=== PATIENT | male | born 1955 | race American Indian/Alaskan Native ===

== ENCOUNTER 2020-09-21 13:05 | Inpatient (IN) | payer OTHER ==
[2020-09-21] MEDS ORDERED: cloNIDine 0.1 MG TAB PO ONE (13:39)
--- NOTE | 2020-09-21 13:39 | Event Note ---
ED Screening Note ED Screening Note: Patient is a 65-year-old male presents emergency room complaints of right arm and right leg weakness that began 2 days ago He states that he feels slightly off balance and that his speech feels slightly different he denies any CP, SOB, Abd pain, vision changes, headache PMHx HTN and borderline DM takes lisinopril for BP and took today allergy: chloroquine This initial assessment/diagnostic orders/clinical plan/treatment(s) is/are subject to change based on patients health status, clinical progression and re- assessment by fellow clinical providers in the ED. Further treatment and workup at subsequent clinical providers discretion. Patient/guardian urged not to elope from the ED as their condition may be serious if not clinically assessed and managed. Initial orders include: labs, EKG, CT head, UA
--- NOTE | 2020-09-21 14:34 | Cat Scan Report ---
CT HEAD WITHOUT CONTRAST INDICATION / CLINICAL INFORMATION: htn urgency, right arm and right leg weakness. TECHNIQUE: Axial imaging performed from the skull apex through the skull base without the use of cont rast. Sagittal and coronal reformatted images. All CT scans at this location are performed using CT dose reduction for ALARA by means of automated exposure control. COMPARISON: None available. FINDINGS: CEREBRAL PARENCHYMA: No acute parenchymal abnormality is detected. Mild chronic microvascular ischemi c changes in the white matter are noted. Focal chronic infarct in the right subinsular region measure s 1.6 x 0.7 cm in axial plane. HEMORRHAGE: None. EXTRA-AXIAL SPACES: Normal in size and morphology for the patient's age. VENTRICULAR SYSTEM: Normal in size and morphology for the patient's age. MIDLINE SHIFT OR HERNIATION: None. CEREBELLUM / BRAINSTEM: No significant abnormality. CALVARIUM: No significant abnormality. ORBITS: Normal as visualized. PARANASAL SINUSES / MASTOID AIR CELLS: Right ethmoid air cells and visualized right maxillary sinus a ppear to be opacified. The remaining sinuses are clear. SOFT TISSUES of HEAD: No significant abnormality. ADDITIONAL FINDINGS: None. IMPRESSION: No acute intracranial abnormality. Chronic white matter changes. Chronic focal infarct in the right s ubinsular region. Chronic appearing right ethmoid and maxillary sinus disease. Signer Name: Alphonso Orozco Jr, MD Signed: 09/21/2020 2:30 PM Workstation Name: [id number]
[2020-09-21 15:48] LABS: Eosinophils # (Auto) 0.1 K/mm3 (0.0-0.4); Eosinophils % (Auto) 1.9 % (0.0-4.3); Hematocrit 48.2 % (35.5-45.6); Hemoglobin 16.4 gm/dl (11.8-15.2); INR 0.91 (0.87-1.13); Lymphocytes # (Auto) 1.7 K/mm3 (1.2-5.4); Lymphocytes % (Auto) 34.3 % (13.4-35.0); Mean Corpuscular HGB Conc 34 % (32-34); Mean Corpuscular Volume 92 fl (84-94); Monocytes # (Auto) 0.4 K/mm3 (0.0-0.8); Monocytes % (Auto) 8.2 % (0.0-7.3); Partial Thromboplastin Time 27.6 Sec. (24.2-36.6); Red Blood Count 5.24 M/mm3 (3.65-5.03)
[2020-09-21 15:54] LABS: Alanine Aminotransferase 15 units/L (7-56); Albumin 4.3 g/dL (3.9-5); BUN/Creatinine Ratio 11; Blood Urea Nitrogen 12 mg/dL (9-20); Calcium 9.5 mg/dL (8.4-10.2); Hemolysis Index 13
[2020-09-21 16:03] LABS: Platelet Count 172 K/mm3 (140-440)
[2020-09-21] MEDS ORDERED: cloNIDine 0.2 MG TAB ONE (17:25)
[2020-09-21] MEDS ORDERED: cloNIDine 0.2 MG TAB PO ONE (17:28)
--- NOTE | 2020-09-21 18:59 | Emergency Department Report ---
HPI - General Chief Complaint: Neuro Symptoms/Deficit Time Seen by Provider: 09/21/20 13:27 - HPI HPI: This is a 65-year-old male who presents to the emergency department with the complaint of a 3-day history of some weakness to the right arm and leg, dif ficulty with his speech, and feeling off balanced when he is ambulating. Patient says that the symptoms have been going on since they began. However during my examination the patient does admit that the speech has improved, but not resolved. The patient has taken his home medications but otherwise has not taken anything to try and treat his symptoms. He has a past medical history of hypertension and prediabetes. The patient does present with extremely elevated blood pressure but says he has been compliant with his medications, lisinopril. He denies any tobacco or illicit drug use. He is an occasional alcohol drinker but says he has not had any in the past month. He does not have a primary care physician. No recent travel or sick contacts at home. He denies any fever, headache, vision change, numbness or paresthesias, chest pain or shortness of breath. ED Past Medical Hx - Past Medical History Hx Hypertension: Yes Hx Diabetes: Yes - Surgical History Past Surgical History?: No - Social History Smoking Status: Never Smoker Substance Use Type: Alcohol - Medications Home Medications: Home Medications Medication Instructions Recorded Confirmed Last Taken Type lisinopriL [Lisinopril] 20 mg PO QDAY 09/21/20 09/21/20 Unknown History ED Review of Systems ROS: Stated complaint: RT SIDE WEAK/SHAKY Other details as noted in HPI Comment: All other systems reviewed and negative Constitutional: denies: chills, fever Eyes: denies: eye pain, vision change ENT: denies: ear pain, throat pain Respiratory: denies: cough, shortness of breath Cardiovascular: denies: chest pain, palpitations Gastrointestinal: denies: abdominal pain, vomiting Genitourinary: denies: dysuria, discharge Musculoskeletal: denies: back pain, arthralgia Skin: denies: rash, lesions Neurological: weakness, other (difficulty with speech). denies: headache, numbness Physical Exam - Physical Exam Vital Signs: Vital Signs 09/21/20 09/21/20 13:20 17:29 Temperature 98.2 F Pulse Rate 81 67 Respiratory 18 Rate Blood Pressure 256/130 233/116 O2 Sat by Pulse 99 Oximetry Physical Exam: GENERAL: The patient is well-developed well-nourished. HENT: Normocephalic. Atraumatic. Patient has moist mucous membranes. EYES: Extraocular motions are intact. Pupils equal reactive to light bilaterally. No nystagmus. NECK: Supple. Trachea is midline. CHEST/LUNGS: Clear to auscultation. There is no respiratory distress noted. HEART/CARDIOVASCULAR: Regular. There is no tachycardia. There is no murmur. ABDOMEN: Abdomen is soft, nontender. Patient has normal bowel sounds. There is no abdominal distention. SKIN: Skin is warm and dry. NEURO: The patient is awake, alert, and oriented. The patient is cooperative. No pronator drift. Patient is slightly ataxic. Mild dysarthria. No facial asymmetry. MUSCULOSKELETAL: There is no tenderness or deformity. There is no limitation range of motion. ED Course Vital Signs 09/21/20 09/21/20 13:20 17:29 Temperature 98.2 F Pulse Rate 81 67 Respiratory 18 Rate Blood Pressure 256/130 233/116 O2 Sat by Pulse 99 Oximetry - Consultations Consultation #1: 09/21/20 19:12 I contacted the telemedicine neurology service and the neurologist is currently in the room evaluating the patient. ED Medical Decision Making - Lab Data Result diagrams: 09/21/20 15:11 09/21/20 15:11 Lab Results 09/21/20 09/21/20 09/21/20 Range/Units 13:23 15:11 15:11 WBC 4.8 (4.5-11.0) K/mm3 RBC 5.24 H (3.65-5.03) M/mm3 Hgb 16.4 H (11.8-15.2) gm/dl Hct 48.2 H (35.5-45.6) % MCV 92 (84-94) fl MCH 31 (28-32) pg MCHC 34 (32-34) % RDW 15.0 (13.2-15.2) % Plt Count 172 (140-440) K/mm3 Lymph % (Auto) 34.3 (13.4-35.0) % Sandoval % (Auto) 8.2 H (0.0-7.3) % Eos % (Auto) 1.9 (0.0-4.3) % Baso % (Auto) Senior C Software Engineer Lymph # (Auto) 1.7 (1.2-5.4) K/mm3 Sandoval # (Auto) 0.4 (0.0-0.8) K/mm3 Eos # (Auto) 0.1 (0.0-0.4) K/mm3 Baso # (Auto) 0.0 (0.0-0.1) K/mm3 Seg Neutrophils % 55.0 (40.0-70.0) % Seg Neutrophils # 2.7 (1.8-7.7) K/mm3 PT 12.2 (12.2-14.9) Sec. INR 0.91 (0.87-1.13) APTT 27.6 (24.2-36.6) Sec. Sodium (137-145) mmol/L Potassium (3.6-5.0) mmol/L Chloride (98-107) mmol/L Carbon Dioxide (22-30) mmol/L Anion Gap mmol/L BUN (9-20) mg/dL Creatinine (0.8-1.3) mg/dL Estimated GFR ml/min BUN/Creatinine Ratio % Glucose (75-100) mg/dL POC Glucose 118 H (70-105) mg/dL Calcium (8.4-10.2) mg/dL Magnesium (1.7-2.3) mg/dL Total Bilirubin (0.1-1.2) mg/dL AST (5-40) units/L ALT (7-56) units/L Alkaline Phosphatase (35-129) units/L Total Creatine Kinase (55-170) units/L Troponin T (0.00-0.029) ng/mL Total Protein (6.3-8.2) g/dL Albumin (3.9-5) g/dL Albumin/Globulin Ratio % // Range/Units 15:11 WBC (4.5-11.0) K/mm3 RBC (3.65-5.03) M/mm3 Hgb (11.8-15.2) gm/dl Hct (35.5-45.6) % MCV (84-94) fl MCH (28-32) pg MCHC (32-34) % RDW (13.2-15.2) % Plt Count (140-440) K/mm3 Lymph % (Auto) (13.4-35.0) % Sandoval % (Auto) (0.0-7.3) % Eos % (Auto) (0.0-4.3) % Baso % (Auto) Lymph # (Auto) (1.2-5.4) K/mm3 Sandoval # (Auto) (0.0-0.8) K/mm3 Eos # (Auto) (0.0-0.4) K/mm3 Baso # (Auto) (0.0-0.1) K/mm3 Seg Neutrophils % (40.0-70.0) % Seg Neutrophils # (1.8-7.7) K/mm3 PT (12.2-14.9) Sec. INR (0.87-1.13) APTT (24.2-36.6) Sec. Sodium 136 L (137-145) mmol/L Potassium 4.4 (3.6-5.0) mmol/L Chloride 101.4 (98-107) mmol/L Carbon Dioxide 28 (22-30) mmol/L Anion Gap 11 mmol/L BUN 12 (9-20) mg/dL Creatinine 1.1 (0.8-1.3) mg/dL Estimated GFR > 60 ml/min BUN/Creatinine Ratio 11 % Glucose 123 H (75-100) mg/dL POC Glucose (70-105) mg/dL Calcium 9.5 (8.4-10.2) mg/dL Magnesium 1.90 (1.7-2.3) mg/dL Total Bilirubin 0.60 (0.1-1.2) mg/dL AST 20 (5-40) units/L ALT 15 (7-56) units/L Alkaline Phosphatase 76 (35-129) units/L Total Creatine Kinase 139 (55-170) units/L Troponin T < 0.010 (0.00-0.029) ng/mL Total Protein 7.4 (6.3-8.2) g/dL Albumin 4.3 (3.9-5) g/dL Albumin/Globulin Ratio 1.4 % - EKG Data -: EKG Interpreted by Nd EKG shows normal: sinus rhythm (PACs), axis, intervals, QRS complexes (Q waves to the septal leads, LVH), ST-T waves (T wave versions to the lateral leads) Rate: normal - EKG Data When compared to previous EKG there are: previous EKG unavailable Interpretation: other (Sinus rhythm at 64 bpm, normal axis, normal intervals, Q waves to the septal leads, LVH, T wave inversions to the lateral leads. No ST elevation SC.) - Radiology Data Radiology results: report reviewed CT HEAD WITHOUT CONTRAST INDICATION / CLINICAL INFORMATION: htn urgency, right arm and right leg weakness. TECHNIQUE: Axial imaging performed from the skull apex through the skull base without the use of contrast. Sagittal and coronal reformatted images. All CT scans at this location are performed using CT dose reduction for ALARA by means of automated exposure control. COMPARISON: None available. FINDINGS: CEREBRAL PARENCHYMA: No acute parenchymal abnormality is detected. Mild chronic microvascular ischemic changes in the white matter are noted. Focal chronic infarct in the right subinsular region measures 1.6 x 0.7 cm in axial plane. HEMORRHAGE: None. EXTRA-AXIAL SPACES: Normal in size and morphology for the patient's age. VENTRICULAR SYSTEM: Normal in size and morphology for the patient's age. MIDLINE SHIFT OR HERNIATION: None. CEREBELLUM / BRAINSTEM: No significant abnormality. CALVARIUM: No significant abnormality. ORBITS: Normal as visualized. PARANASAL SINUSES / MASTOID AIR CELLS: Right ethmoid air cells and visualized right maxillary sinus appear to be opacified. The remaining sinuses are clear. SOFT TISSUES of HEAD: No significant abnormality. ADDITIONAL FINDINGS: None. IMPRESSION: No acute intracranial abnormality. Chronic white matter changes. Chronic focal infarct in the right subinsular region. Chronic appearing right ethmoid and maxillary sinus disease. - Medical Decision Making This patient presents with a 3-day history of some right-sided weakness, subjective slurred speech, and feeling off balance while walking. CT scan of the head without contrast does not show any acute bleed or large vessel occlusion. The patient's labs have been mostly unremarkable including CBC, metabolic panel and coags. Patient was seen by the telemedicine neurologist who believes that this could be secondary to his accelerated hypertension versus a CVA. He recommends admission for further stroke work-up. Patient was accepted for admission by the hospitalist, Dr. Xie. Critical Care Time: Yes Critical care time in (mins) excluding proc time.: 35 Critical care attestation.: If time is entered above; I have spent that time in minutes in the direct care of this critically ill patient, excluding procedure time. Critical care time was spent on this patient in doing his initial evaluation, multiple reevaluations, ordering and interpretation of labs and imaging, discussion with the neurologist, and multiple discussions with the patient. Critical Care Time: 35 minutes ED Disposition Clinical Impression: Hypertensive urgency CVA (cerebral vascular accident) Qualifiers: CVA mechanism: unspecified Qualified Code(s): I63.9 - Cerebral infarction, unspecified Disposition: DC-09 OP ADMIT IP TO THIS HOSP Is pt being admited?: Yes Condition: Serious Time of Disposition: 19:25
[2020-09-21] MEDS ORDERED: hydrALAZINE 20 MG/1 ML INJ IV ONE (19:19)
[2020-09-21] MEDS ORDERED: ASPIRIN 81 MG TAB CHEW PO ONE (19:22)
--- NOTE | 2020-09-21 19:26 | Emergency Department Report ---
HPI - General Chief Complaint: Neuro Symptoms/Deficit Time Seen by Provider: 09/21/20 13:27 - HPI HPI: [facility] Consult Note # Demographics Consult Type: Phone Only First Name: Rupert Last Name: Camelia Date of : 1955 Age: 65 Gender: male Time of initial page ([facility] ): 09-21-2020, 17:05 Time of return call ([facility] ): 09-21-2020, 17:06 # HPI Additional History: 65 yo man with hypertension, noted that starting sunday night started to have RSW , and now with dysarthria, imbalance issues. For ED doctor, NIHSS [address] head was negative. BPs 230s/110s. His symptoms started with his feeling right sided weakness , noting he would get tired on the right side more than normal. Also , he noted on sunday, his balance was off in general. # Scores Time of exam and NIHSS ([facility] ): 09-21-2020, 17:14 Level of Consciousness 1a: [0] = Alert; keenly responsive LOC Questions 1b: [0] = Answers both questions correctly LOC Commands 1c: [0] = Performs both tasks correctly Best Gaze 2: [0] = Normal Visual 3: [0] = No visual loss Facial Palsy 4: [0] = Normal symmetrical movements Motor Arm Left 5a: [0] = No drift Motor Arm Right 5b: [1] = Drift Motor Leg Left 6a: [0] = No drift Motor Leg Right 6b: [1] = Drift Limb Ataxia 7: [2] = Present in two limbs Sensory 8: [0] = Normal Best Language 9: [0] = No aphasia Dysarthria 10: [1] = [id number] dysarthria Extinction and Inattention 11: [0] = No abnormality NIHSS Total: 5 # Data Time Head CT personally ready by me (): 09-21-2020, 17:20:[address]: no bleed # Assessment Impression: right sided weakness, ataxia history and physical suggest stroke out of tpa window # Plan Thrombolytic/Intervention: NOT IV Alteplase or IA Intervention Alteplase Exclusion: > 4.5 hours Intraarterial Exclusion: other (see below), no large vessel occlusion (LVO) Blood Pressure Target: SBP < 220 Labs: CBC, comprehensive metabolic panel, hemoglobin A1c, TSH, urine drug screen, ua Imaging: (urgency: routine admission): MRI Brain without contrast Diagnostic Test: echo with bubble study Therapy/Evaluation: speech/swallow consultation Medication: aspirin 325 mg daily DVT Prophylaxis: SCD, heparin 5000 units subcutaneously q 12 hours Other: If patient has any neurological deterioration please call me back immediately, I have discussed my recommendations with the referring provider Additional Recommendations: Admit for stroke work up. ED Past Medical Hx - Past Medical History Hx Hypertension: Yes Hx Diabetes: Yes - Surgical History Past Surgical History?: No - Social History Smoking Status: Never Smoker Substance Use Type: Alcohol ED Review of Systems ROS: Stated complaint: RT SIDE WEAK/SHAKY Other details as noted in HPI Constitutional: denies: chills, fever Eyes: denies: eye pain, vision change ENT: denies: ear pain, throat pain Respiratory: denies: cough, shortness of breath Cardiovascular: denies: chest pain, palpitations Gastrointestinal: denies: abdominal pain, vomiting Genitourinary: denies: dysuria, discharge Musculoskeletal: denies: back pain, arthralgia Skin: denies: rash, lesions Neurological: weakness, other (difficulty with speech). denies: headache, numbness Physical Exam - Physical Exam Vital Signs: Vital Signs 09/21/20 09/21/20 13:20 17:29 Temperature 98.2 F Pulse Rate 81 67 Respiratory 18 Rate Blood Pressure 256/130 233/116 O2 Sat by Pulse 99 Oximetry ED Course Vital Signs 09/21/20 09/21/20 13:20 17:29 Temperature 98.2 F Pulse Rate 81 67 Respiratory 18 Rate Blood Pressure 256/130 233/116 O2 Sat by Pulse 99 Oximetry ED Medical Decision Making - Lab Data Result diagrams: 09/21/20 15:11 09/21/20 15:11 Critical care attestation.: If time is entered above; I have spent that time in minutes in the direct care of this critically ill patient, excluding procedure time. ED Disposition Clinical Impression: CVA (cerebral vascular accident) Qualifiers: CVA mechanism: unspecified Qualified Code(s): I63.9 - Cerebral infarction, unspecified Disposition: 09 OP ADMIT IP TO THIS HOSP Is pt being admited?: Yes Does the pt Need Aspirin: Yes Condition: Stable Referrals: PRIMARY CARE, [Primary Care Provider] - 3-5 Days
[2020-09-21] MEDS ORDERED: ONDANSETRON 4 MG/2 ML INJ IV PRN (20:33)
[2020-09-21] MEDS ORDERED: ACETAMINOPHEN 325 MG TAB PO PRN (20:33)
[2020-09-21] MEDS ORDERED: IBUPROFEN 600 MG TAB PO PRN (20:33)
[2020-09-21] MEDS ORDERED: HYDROmorphone 1 MG/1 ML INJ IV PRN (20:33)
[2020-09-21] MEDS ORDERED: MORPHINE 2 MG/1 ML INJ IV PRN (20:33)
--- NOTE | 2020-09-21 20:58 | History and Physical Report ---
History of Present Illness Date of examination: 09/21/20 Date of admission: 09/21/20 19:25 Chief complaint: Right-sided weakness since Sunday which is more than 48 hours ago History of present illness: 65-year-old -Swedish male with history of hypertension and prediabetes and stopped taking medicines for the last 8 months because his blood pressure normalized. Does not have a PCP. Patient comes in for weakness of the right upper extremity and right lower extremity for the last 3 days since Sunday. Able to walk but the right lower extremity gives away sometimes. Able to raise his right arm but not normal. No chest pain. No nicotine use or alcohol use. No fever or chills. No exposure to coronavirus. No exacerbating or relieving factors. Very noncompliant and does not have a PCP. - Past Medical History --Hypertension: Yes --Diabetes: Yes - Surgical History Past Surgical History?: No - Social History Smoking Status: Never Smoker Substance Use Type: Alcohol Family history Htn Review of Systems ROS: Stated complaint: RT SIDE WEAK/SHAKY Other details as noted in HPI Comment: All other systems reviewed and negative Constitutional: denies: chills, fever Eyes: denies: eye pain, vision change ENT: denies: ear pain, throat pain Respiratory: denies: cough, shortness of breath Cardiovascular: denies: chest pain, palpitations Gastrointestinal: denies: abdominal pain, vomiting Genitourinary: denies: dysuria, discharge Musculoskeletal: denies: back pain, arthralgia Skin: denies: rash, lesions Neurological: weakness, other (difficulty with speech). denies: headache, numbness Medications and Allergies Allergies Allergy/AdvReac Type Severity Reaction Status Date / Time chloroquine Allergy Hives Verified 09/21/20 17:32 Active Meds: Active Medications Acetaminophen (Acetaminophen 325 Mg Tab) 650 mg PO Q4H PRN PRN Reason: Pain MILD(1-3)/Fever >100.5/MELO Amlodipine Besylate (Amlodipine 10 Mg Tab) 10 mg PO QDAY MARK Aspirin (Aspirin 325 Mg Tab) 325 mg PO QDAY [facility] Atorvastatin Calcium (Atorvastatin 40 Mg Tab) 40 mg PO QHS [facility] Carvedilol (Carvedilol 12.5 Mg Tab) 12.5 mg PO BID [facility] Clopidogrel Bisulfate (Clopidogrel 75 Mg Tab) 75 mg PO QDAY [facility] Famotidine (Famotidine 20 Mg Tab) 20 mg PO BID [facility] Heparin Sodium (Porcine) (Heparin 5,000 Unit/1 Ml Vial) 5,000 unit SUB-Q Q12HR [facility] Hydralazine HCl (Hydralazine 20 Mg/1 Ml Inj) 10 mg IV Q3H PRN PRN Reason: Blood Pressure Hydromorphone HCl (Hydromorphone 1 Mg/1 Ml Inj) 0.5 mg IV Q3H PRN PRN Reason: Pain , Severe (7-10) Ibuprofen (Ibuprofen 600 Mg Tab) 600 mg PO Q6H PRN PRN Reason: Pain, Mild (1-3) Insulin Human Lispro (Insulin Lispro 100 Unit/Ml) 0 unit SUB-Q ACHS MARK; Protocol Morphine Sulfate (Morphine 2 Mg/1 Ml Inj) 2 mg IV Q4H PRN PRN Reason: Pain, Moderate (4-6) Ondansetron HCl (Ondansetron 4 Mg/2 Ml Inj) 4 mg IV Q8H PRN PRN Reason: Nausea And Vomiting Sodium Chloride (Sodium Chloride 0.9% 10 Ml Flush Syringe) 10 ml IV BID [facility] Sodium Chloride (Sodium Chloride 0.9% 10 Ml Flush Syringe) 10 ml IV PRN PRN PRN Reason: LINE FLUSH Sodium Chloride (Sodium Chloride 0.9% 10 Ml Flush Syringe) 10 ml IV PRN PRN PRN Reason: LINE FLUSH Valsartan (Valsartan 160mg Tab) 160 mg PO Q12H [facility] Exam - Constitutional Vitals: Temp Pulse Resp BP Pulse Ox 98.1 F 64 14 228/110 99 09/21/20 19:45 09/21/20 20:00 09/21/20 20:16 09/21/20 20:16 09/21/20 20:16 General appearance: Present: no acute distress, well-nourished - EENT Eyes: Present: PERRL ENT: hearing intact, clear oral mucosa - Neck Neck: Present: supple, normal ROM - Respiratory Respiratory effort: normal Respiratory: bilateral: CTA - Cardiovascular Heart rate: 78 Rhythm: regular Heart Sounds: Present: S1 & S2. Absent: rub, click - Extremities Extremities: no ischemia, pulses intact, pulses symmetrical, No edema Peripheral Pulses: within normal limits - Abdominal General gastrointestinal: Present: soft, non-tender, non-distended, normal bowel sounds Male genitourinary: Present: normal - Integumentary Integumentary: Present: clear, warm, dry - Musculoskeletal Musculoskeletal: right sided weakness - Psychiatric Psychiatric: appropriate mood/affect, intact judgment & insight - Neurologic Neurologic: CNII-XII intact, focal deficits (Right upper extremity weakness 3/5 power, right lower extremity weakness 3/5 power, reflexes are brisk on the right side) HEART Score - HEART Score History: Moderately suspicious Risk factors: 1-2 risk factors Troponin: Troponin T < 0.010 ng/mL (0.00-0.029) 09/21/20 15:11 Troponin: < normal limit - Critical Actions Critical Actions: 0-3 pts:0.9-1.7%risk of adverse cardiac event.Candidate for discharge Results - Labs CBC & Chem 7: 09/21/20 15:11 09/21/20 15:11 Labs: Laboratory Last Values WBC 4.8 K/mm3 (4.5-11.0) 09/21/20 15:11 RBC 5.24 M/mm3 (3.65-5.03) H 09/21/20 15:11 Hgb 16.4 gm/dl (11.8-15.2) H 09/21/20 15:11 Hct 48.2 % (35.5-45.6) H 09/21/20 15:11 MCV 92 fl (84-94) 09/21/20 15:11 MCH 31 pg (28-32) 09/21/20 15:11 MCHC 34 % (32-34) 09/21/20 15:11 RDW 15.0 % (13.2-15.2) 09/21/20 15:11 Plt Count 172 K/mm3 (140-440) 09/21/20 15:11 Lymph % (Auto) 34.3 % (13.4-35.0) 09/21/20 15:11 [place] % (Auto) 8.2 % (0.0-7.3) H 09/21/20 15:11 Eos % (Auto) 1.9 % (0.0-4.3) 09/21/20 15:11 Baso % (Auto) Medical Staff Credentialing Coordinator 09/21/20 15:11 Lymph # (Auto) 1.7 K/mm3 (1.2-5.4) 09/21/20 15:11 [place] # (Auto) 0.4 K/mm3 (0.0-0.8) 09/21/20 15:11 Eos # (Auto) 0.1 K/mm3 (0.0-0.4) 09/21/20 15:11 Baso # (Auto) 0.0 K/mm3 (0.0-0.1) 09/21/20 15:11 Seg Neutrophils % 55.0 % (40.0-70.0) 09/21/20 15:11 Seg Neutrophils # 2.7 K/mm3 (1.8-7.7) 09/21/20 15:11 PT 12.2 Sec. (12.2-14.9) 09/21/20 15:11 INR 0.91 (0.87-1.13) 09/21/20 15:11 APTT 27.6 Sec. (24.2-36.6) 09/21/20 15:11 Sodium 136 mmol/L (137-145) L 09/21/20 15:11 Potassium 4.4 mmol/L (3.6-5.0) 09/21/20 15:11 Chloride 101.4 mmol/L (98-107) 09/21/20 15:11 Carbon Dioxide 28 mmol/L (22-30) 09/21/20 15:11 Anion Gap 11 mmol/L 09/21/20 15:11 BUN 12 mg/dL (9-20) 09/21/20 15:11 Creatinine 1.1 mg/dL (0.8-1.3) 09/21/20 15:11 Estimated GFR > 60 ml/min 09/21/20 15:11 BUN/Creatinine Ratio 11 % 09/21/20 15:11 Glucose 123 mg/dL (75-100) H 09/21/20 15:11 POC Glucose 118 mg/dL (70-105) H 09/21/20 13:23 Calcium 9.5 mg/dL (8.4-10.2) 09/21/20 15:11 Magnesium 1.90 mg/dL (1.7-2.3) 09/21/20 15:11 Total Bilirubin 0.60 mg/dL (0.1-1.2) 09/21/20 15:11 AST 20 units/L (5-40) 09/21/20 15:11 ALT 15 units/L (7-56) 09/21/20 15:11 Alkaline Phosphatase 76 units/L (35-129) 09/21/20 15:11 Total Creatine Kinase 139 units/L (55-170) 09/21/20 15:11 Troponin T < 0.010 ng/mL (0.00-0.029) 09/21/20 15:11 Total Protein 7.4 g/dL (6.3-8.2) 09/21/20 15:11 Albumin 4.3 g/dL (3.9-5) 09/21/20 15:11 Albumin/Globulin Ratio 1.4 % 09/21/20 15:11 Short CBC 09/21/20 Range/Units 15:11 WBC 4.8 (4.5-11.0) K/mm3 Hgb 16.4 H (11.8-15.2) gm/dl Hct 48.2 H (35.5-45.6) % Plt Count 172 (140-440) K/mm3 BMP 09/21/20 15:11 Sodium 136 L Potassium 4.4 Chloride 101.4 Carbon Dioxide 28 BUN 12 Creatinine 1.1 Glucose 123 H Calcium 9.5 Cardiac Enzymes 09/21/20 Range/Units 15:11 Total Creatine Kinase 139 (55-170) units/L Troponin T < 0.010 (0.00-0.029) ng/mL Liver Function 09/21/20 Range/Units 15:11 Total Bilirubin 0.60 (0.1-1.2) mg/dL AST 20 (5-40) units/L ALT 15 (7-56) units/L Alkaline Phosphatase 76 (35-129) units/L Albumin 4.3 (3.9-5) g/dL - Imaging and Cardiology EKG: report reviewed (Sinus rhythm, heart rate of 64/min T wave inversions in lead I lead II, aVL and V4 V5 V6. Also LVH criteria present. With repolarization abnormalities.) Imaging and Cardiology: CT of the head No acute intracranial abnormality Chronic white matter changes. Chronic focal infarcts Chronic appearing right ethmoid and maxillary sinus disease Assessment and Plan Advance Directives: Yes (Full code) VTE prophylaxis?: Chemical Plan of care discussed with patient/family: Yes - Patient Problems (1) Acute CVA (cerebrovascular accident) Current Visit: Yes Status: Acute Plan to address problem: With right-sided weakness more than 48 hours. 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
[2020-09-21] MEDS ORDERED: SODIUM CHLORIDE 0.9% 1000 ML 1,000 ML IV SCH (21:15)
[2020-09-21] MEDS: amLODIPine 10 MG TAB PO SCH (21:20)
[2020-09-21] MEDS: CLOPIDOGREL 75 MG TAB PO SCH (21:20)
[2020-09-21] MEDS: VALSARTAN 160MG TAB PO SCH (21:20)
[2020-09-21] MEDS: HEPARIN 5,000 UNIT/1 ML VIAL SUB-Q SCH (21:42)
[2020-09-21] MEDS: FAMOTIDINE 20 MG TAB PO SCH (21:42)
[2020-09-21] MEDS: INSULIN LISPRO 100 UNIT/ML SUB-Q SCH (21:45)
[2020-09-21] MEDS: hydrALAZINE 20 MG/1 ML INJ IV PRN (22:30)
[2020-09-22] MEDS: carvediloL 12.5 MG TAB PO SCH ×3 (02:49→21:42)
[2020-09-22] MEDS: hydrALAZINE 20 MG/1 ML INJ IV PRN (02:57)
[2020-09-22 06:18] LABS: Basophils % (Auto) 0.5 % (0.0-1.8); Eosinophils # (Auto) 0.1 K/mm3 (0.0-0.4); Eosinophils % (Auto) 2.3 % (0.0-4.3); Hematocrit 44.2 % (35.5-45.6); Lymphocytes # (Auto) 1.9 K/mm3 (1.2-5.4); Mean Corpuscular HGB Conc 34 % (32-34); Mean Corpuscular Volume 93 fl (84-94); Monocytes # (Auto) 0.6 K/mm3 (0.0-0.8); Monocytes % (Auto) 10.8 % (0.0-7.3); Platelet Count 183 K/mm3 (140-440); Red Blood Count 4.77 M/mm3 (3.65-5.03); Red Cell Distribution Width 15.2 % (13.2-15.2)
[2020-09-22 07:00] LABS: Alanine Aminotransferase 14 units/L (7-56); Albumin 3.7 g/dL (3.9-5); BUN/Creatinine Ratio 10; Blood Urea Nitrogen 19 mg/dL (9-20); Calcium 9.1 mg/dL (8.4-10.2); Chol/HDL Ratio 6.25 %; HDL Cholesterol 36 mg/dL (40-59); Hemolysis Index 79; LDL Cholesterol,Direct TNR mg/dL (50-130)
--- NOTE | 2020-09-22 09:13 | Magnetic Resonance Report ---
NONENHANCED MR SCAN OF THE BRAIN: INDICATION / CLINICAL INFORMATION: stroke. TECHNIQUE: Multiplanar, multisequence MR images of the brain obtained. COMPARISON: CT scan of the head from 09/04/2020 FINDINGS: BRAIN / INTRACRANIAL CONTENTS: Abnormal MRI scan Subacute infarction in the left pontine corticospinal tract, more than 12 hours old (increased T2 sig nal) but less than 5-7 days old (low ADC) In the gradient echo images, old hemorrhagic changes seen in the right putamen. In addition, multiple punctate areas of susceptibility changes seen in the brainstem, both cerebral hemispheres primarily in the basal ganglia. These appear to be chronic microbleeds. History of hypertension; These are less likely to be from amyloid deposition. Please note these focal areas of chronic microbleeds seen in a nd around the area of subacute left pontine infarction. I am considering the left pontine infarction to be nonhemorrhagic. Prominent perivascular spaces are seen around the anterior commissures bilaterally. Confluent periven tricular FLAIR hyperintensity (grade 2) and hemispheric white matter lesions in both cerebral hemisph eres ([place] 2); chronic lacunae in the basal ganglia; chronic changes in the right side of felipe; th amelia are due to chronic small vessel disease. CRANIOCERVICAL JUNCTION: No significant abnormality. VASCULAR FLOW-VOIDS: No significant abnormality. ORBITS: No significant abnormality of visualized orbits. SINUSES / MASTOIDS: Significant mucosal thickening in both maxillary sinuses; Mucosal thickening in t he right anterior ethmoid air cells and left sphenoid sinus ADDITIONAL FINDINGS: None. IMPRESSION: Subacute left pontine infarction graft multiple foci of susceptibility changes due to chronic microbl eeds Signer Name: Lonnie Mcgraw MD Signed: 09/22/2020 9:08 AM Workstation Name: [id number]
[2020-09-22] MEDS: FAMOTIDINE 20 MG TAB PO SCH (10:25)
[2020-09-22] MEDS: amLODIPine 10 MG TAB PO SCH (10:25)
[2020-09-22] MEDS: ASPIRIN 325 MG TAB PO SCH (10:25)
[2020-09-22] MEDS: HEPARIN 5,000 UNIT/1 ML VIAL SUB-Q SCH ×2 (10:25→21:42)
[2020-09-22] MEDS: CLOPIDOGREL 75 MG TAB PO SCH (10:25)
[2020-09-22] MEDS: INSULIN LISPRO 100 UNIT/ML SUB-Q SCH ×4 (10:26→22:36)
[2020-09-22] MEDS: VALSARTAN 160MG TAB PO SCH ×2 (10:28→21:41)
--- NOTE | 2020-09-22 11:05 | Consultation ---
History of Present Illness Consult date: 09/22/20 Reason for Consult: CVA Chief complaint: Right-sided weakness History of present illness: 65 yo male with htn, dm, who presents with acute onset of right-sided weakness with mild slurring of speech on 09/19/20 in the evening. He presented to the hospital yesterday because his symptoms were not improving. He denies any changes in his medications. Notes that his blood glucose needs to be better controlled. Past History Past Medical History: diabetes, hypertension Medications and Allergies Allergies Allergy/AdvReac Type Severity Reaction Status Date / Time chloroquine Allergy Hives Verified 09/21/20 17:32 Home Medications Medication Instructions Recorded Confirmed Last Taken Type lisinopriL [Lisinopril] 20 mg PO QDAY 09/21/20 09/21/20 Unknown History Active Meds: Active Medications Acetaminophen (Acetaminophen 325 Mg Tab) 650 mg PO Q4H PRN PRN Reason: Pain MILD(1-3)/Fever >100.5/MELO Last Admin: 09/22/20 02:58 Dose: 650 mg Documented by: Amlodipine Besylate (Amlodipine 10 Mg Tab) 10 mg PO QDAY [facility] Last Admin: 09/22/20 10:25 Dose: 10 mg Documented by: Aspirin (Aspirin 325 Mg Tab) 325 mg PO QDAY [facility] Last Admin: 09/22/20 10:25 Dose: 325 mg Documented by: Atorvastatin Calcium (Atorvastatin 40 Mg Tab) 40 mg PO QHS [facility] Last Admin: 09/21/20 21:42 Dose: 40 mg Documented by: Carvedilol (Carvedilol 12.5 Mg Tab) 12.5 mg PO BID [facility] Last Admin: 09/22/20 10:25 Dose: 12.5 mg Documented by: Clopidogrel Bisulfate (Clopidogrel 75 Mg Tab) 75 mg PO QDAY [facility] Last Admin: 09/22/20 10:25 Dose: 75 mg Documented by: Famotidine (Famotidine 20 Mg Tab) 20 mg PO BID [facility] Last Admin: 09/22/20 10:25 Dose: 20 mg Documented by: Heparin Sodium (Porcine) (Heparin 5,000 Unit/1 Ml Vial) 5,000 unit SUB-Q Q12HR [facility] Last Admin: 09/22/20 10:25 Dose: 5,000 unit Documented by: Hydralazine HCl (Hydralazine 20 Mg/1 Ml Inj) 10 mg IV Q3H PRN PRN Reason: Blood Pressure Last Admin: 09/22/20 02:57 Dose: 10 mg Documented by: Hydromorphone HCl (Hydromorphone 1 Mg/1 Ml Inj) 0.5 mg IV Q3H PRN PRN Reason: Pain , Severe (7-10) Ibuprofen (Ibuprofen 600 Mg Tab) 600 mg PO Q6H PRN PRN Reason: Pain, Mild (1-3) Insulin Human Lispro (Insulin Lispro 100 Unit/Ml) 0 unit SUB-Q ACHS [facility]; Protocol Last Admin: 09/22/20 10:26 Dose: 2 unit Documented by: Morphine Sulfate (Morphine 2 Mg/1 Ml Inj) 2 mg IV Q4H PRN PRN Reason: Pain, Moderate (4-6) Ondansetron HCl (Ondansetron 4 Mg/2 Ml Inj) 4 mg IV Q8H PRN PRN Reason: Nausea And Vomiting Sodium Chloride (Sodium Chloride 0.9% 10 Ml Flush Syringe) 10 ml IV BID [facility] Last Admin: 09/22/20 10:28 Dose: 10 ml Documented by: Sodium Chloride (Sodium Chloride 0.9% 10 Ml Flush Syringe) 10 ml IV PRN PRN PRN Reason: LINE FLUSH Valsartan (Valsartan 160mg Tab) 160 mg PO Q12H [facility] Last Admin: 09/22/20 10:28 Dose: 160 mg Documented by: Review of Systems All systems: negative (as per HPI;) Physical Examination - Vital Signs Vital Signs: Vital Signs Temp Pulse Resp BP Pulse Ox 98.2 F 81 18 256/130 99 09/21/20 13:20 09/21/20 13:20 09/21/20 13:20 09/21/20 13:20 09/21/20 13:20 - Physical Exam Narrative exam: Gen: nad, well-nourished; Head: normocephalic; Eyes: no gaze deviation; no ptosis; ENT: normal vocalization; CVS: warm and well-perfused; Pulm: no respiratory distress; GI: appears non-distended, protuberant; Ext: no cyanosis at distal extremities; Skin: no acute rash at distal extremities; Heme: no pathologic bruising at distal extremities; Neuro: alert, oriented to name, age, month, year, surroundings, +slight dysarthria, no aphasia, CN 2 - PERRL, visual cormier intact, CN 3, 4, 6 - EOMI, CN 5 - facial sensation symmetric to light touch, CN 7 - facial movement symmetric, CN 8 - hearing grossly intact, CN 9, 10 - uvula midline, CN 11 - shrug symmetric, CN 12 - tongue midline; Motor - at least 4/5 at right exts with mild drift at right exts; at least 5-/5 at left exts; Sensory - light touch s ymmetric, Cerebellar - fnf /hts intact, Gait - deferred secondary to fall risk; NIHSS (1a.) Level of Consciousness:0 (1b.) LOC Questions:0 (1c.) LOC Commands:0 (2.) Best Gaze:0 (3.) Visual:0 (4.) Facial Palsy:1 (5a.) Motor Arm, Left:0 (5b.) Motor Arm, Right:1 (6a.) Motor Leg, Left:0 (6b.) Motor Leg, Right:1 (7.) Limb Ataxia:0 (8.) Sensory:0 (9.) Best Language:0 (10.) Dysarthria:1 (11.) Extinction and Inattention:0 NIHSS Total Score: 4 Results - Laboratory Findings CBC and BMP: 09/22/20 04:57 09/22/20 04:57 Abnormal Lab Findings: Abnormal Labs 09/21/20 09/21/20 09/21/20 13:23 15:11 15:11 RBC 5.24 H Hgb 16.4 H Hct 48.2 H [place] % (Auto) 8.2 H Sodium 136 L Chloride Creatinine Glucose 123 H POC Glucose 118 H Hemoglobin A1c Albumin Triglycerides Cholesterol HDL Cholesterol 09/22/20 09/22/20 09/22/20 04:57 04:57 04:57 RBC Hgb Hct [place] % (Auto) 10.8 H Sodium 133 L Chloride 96.5 L Creatinine 1.9 H D Glucose POC Glucose Hemoglobin A1c 7.2 H Albumin 3.7 L Triglycerides 502 H Cholesterol 225 H HDL Cholesterol 36 L 09/22/20 07:27 RBC Hgb Hct [place] % (Auto) Sodium Chloride Creatinine Glucose POC Glucose 189 H Hemoglobin A1c Albumin Triglycerides Cholesterol HDL Cholesterol Assessment and Plan 65 yo male with htn, dm, p/w an acute left pontine stroke. 1. Acute Ischemic Stroke: [ASA 325 mg PO qday, ordered CTA Head/Neck w/ & w/o contrast, d/c CUS, confirm TSH; telemetry, SBP goal 160-200 mmHg and DBP 80- 100 mmHg for 24 more hours. Statin therapy for a goal LDL of 70, when patient passes swallow evaluation. PT/OT/ST/Swallow evaluation. Long-term risk-factor modification, including a strict diet/exercise regimen for secondary stroke pr ophylaxis. 2. Hypertension - goal SBP 160-200 mmHg and DBP 80-100 mmHg for 24 more hours. 3. Diabetes Mellitus - maintain euglycemia. 4. Dyslipidemia - goal LDL of 70 w/ statin therapy if no contraindications. 5. Dysarthria / Dysphagia - st / swallow evaluation/monitoring. 6. Right-sided weakness - pt/ot evaluation/monitoring. 7. Unsteady Gait - pt/ot evaluation/monitoring. Vishnu Martin MD Neurology
--- NOTE | 2020-09-22 11:44 | Progress Note ---
Assessment and Plan Assessment and plan: Acute left pontine CVA. Patient with dysarthria/dysphagia/right hemiparesis Hypertension. Diabetes mellitus type 2 Dyslipidemia 09/22/2020. Continue aspirin and lipids for secondary prevention. Neurology ordered CTA Head/Neck w/ & w/o contrast. PT/OT/ST/Swallow evaluation. Long- term risk-factor modification, including a strict diet/exercise regimen for secondary stroke prophylaxis. History Interval history: No new issues overnight Hospitalist Physical - Constitutional Vitals: Temp Pulse Resp BP Pulse Ox 97.7 F 77 15 176/80 96 09/22/20 07:24 09/22/20 10:49 09/22/20 07:24 09/22/20 07:24 09/22/20 07:24 General appearance: Present: no acute distress, well-nourished - EENT Eyes: Present: PERRL, EOM intact ENT: hearing intact, clear oral mucosa, dentition normal - Neck Neck: Present: supple, normal ROM - Respiratory Respiratory effort: normal Respiratory: bilateral: CTA - Cardiovascular Rhythm: regular Heart Sounds: Present: S1 & S2. Absent: gallop, rub - Extremities Extremities: no ischemia, No edema, Full ROM - Abdominal General gastrointestinal: soft, non-tender, non-distended, normal bowel sounds - Integumentary Integumentary: Present: clear, warm, dry - Neurologic Neurologic: CNII-XII intact, moves all extremities HEART Score - HEART Score Risk factors: 1-2 risk factors Troponin: Troponin T < 0.010 ng/mL (0.00-0.029) 09/21/20 15:11 Troponin: < normal limit - Critical Actions Critical Actions: 0-3 pts:0.9-1.7%risk of adverse cardiac event.Candidate for discharge Results - Labs CBC & Chem 7: 09/22/20 04:57 09/22/20 04:57 Labs: Laboratory Last Values WBC 5.8 K/mm3 (4.5-11.0) 09/22/20 04:57 RBC 4.77 M/mm3 (3.65-5.03) 09/22/20 04:57 Hgb 15.0 gm/dl (11.8-15.2) 09/22/20 04:57 Hct 44.2 % (35.5-45.6) 09/22/20 04:57 MCV 93 fl (84-94) 09/22/20 04:57 MCH 31 pg (28-32) 09/22/20 04:57 MCHC 34 % (32-34) 09/22/20 04:57 RDW 15.2 % (13.2-15.2) 09/22/20 04:57 Plt Count 183 K/mm3 (140-440) 09/22/20 04:57 Lymph % (Auto) 32.0 % (13.4-35.0) 09/22/20 04:57 [place] % (Auto) 10.8 % (0.0-7.3) H 09/22/20 04:57 Eos % (Auto) 2.3 % (0.0-4.3) 09/22/20 04:57 Baso % (Auto) 0.5 % (0.0-1.8) 09/22/20 04:57 Lymph # (Auto) 1.9 K/mm3 (1.2-5.4) 09/22/20 04:57 [place] # (Auto) 0.6 K/mm3 (0.0-0.8) 09/22/20 04:57 Eos # (Auto) 0.1 K/mm3 (0.0-0.4) 09/22/20 04:57 Baso # (Auto) 0.0 K/mm3 (0.0-0.1) 09/22/20 04:57 Seg Neutrophils % 54.4 % (40.0-70.0) 09/22/20 04:57 Seg Neutrophils # 3.2 K/mm3 (1.8-7.7) 09/22/20 04:57 PT 12.2 Sec. (12.2-14.9) 09/21/20 15:11 INR 0.91 (0.87-1.13) 09/21/20 15:11 APTT 27.6 Sec. (24.2-36.6) 09/21/20 15:11 Sodium 133 mmol/L (137-145) L 09/22/20 04:57 Potassium 3.9 mmol/L (3.6-5.0) 09/22/20 04:57 Chloride 96.5 mmol/L (98-107) L 09/22/20 04:57 Carbon Dioxide 28 mmol/L (22-30) 09/22/20 04:57 Anion Gap 12 mmol/L 09/22/20 04:57 BUN 19 mg/dL (9-20) 09/22/20 04:57 Creatinine 1.9 mg/dL (0.8-1.3) H D 09/22/20 04:57 Estimated GFR 43 ml/min 09/22/20 04:57 BUN/Creatinine Ratio 10 % 09/22/20 04:57 Glucose 86 mg/dL (75-100) 09/22/20 04:57 POC Glucose 189 mg/dL (70-105) H 09/22/20 07:27 Hemoglobin A1c 7.2 % (4-6) H 09/22/20 04:57 Calcium 9.1 mg/dL (8.4-10.2) 09/22/20 04:57 Magnesium 1.90 mg/dL (1.7-2.3) 09/21/20 15:11 Total Bilirubin 0.30 mg/dL (0.1-1.2) 09/22/20 04:57 AST 21 units/L (5-40) 09/22/20 04:57 ALT 14 units/L (7-56) 09/22/20 04:57 Alkaline Phosphatase 67 units/L (35-129) 09/22/20 04:57 Total Creatine Kinase 139 units/L (55-170) 09/21/20 15:11 Troponin T < 0.010 ng/mL (0.00-0.029) 09/21/20 15:11 Total Protein 6.6 g/dL (6.3-8.2) 09/22/20 04:57 Albumin 3.7 g/dL (3.9-5) L 09/22/20 04:57 Albumin/Globulin Ratio 1.3 % 09/22/20 04:57 Triglycerides 502 mg/dL (2-149) H 09/22/20 04:57 Cholesterol 225 mg/dL (50-199) H 09/22/20 04:57 LDL Cholesterol Direct TNR 09/22/20 04:57 HDL Cholesterol 36 mg/dL (40-59) L 09/22/20 04:57 Cholesterol/HDL Ratio 6.25 % 09/22/20 04:57 Mart/IV: Voiding Method Toilet Active Medications - Current Medications Current Medications: Generic Name Dose Route Start Last Admin Trade Name Freq PRN Reason Stop Dose Admin Acetaminophen 650 mg 09/21/20 20:33 09/22/20 02:58 Acetaminophen 325 Mg Tab PO 650 mg Q4H PRN Administration Pain MILD(1-3)/Fever >100.5/MELO Amlodipine Besylate 10 mg 09/21/20 21:00 09/22/20 10:25 Amlodipine 10 Mg Tab PO 10 mg QDAY [facility] Administration Aspirin 325 mg 09/22/20 10:00 09/22/20 10:25 Aspirin 325 Mg Tab PO 325 mg QDAY [facility] Administration Atorvastatin Calcium 40 mg 09/21/20 22:00 09/21/20 21:42 Atorvastatin 40 Mg Tab PO 40 mg QHS [facility] Administration Carvedilol 12.5 mg 09/21/20 22:00 09/22/20 10:25 Carvedilol 12.5 Mg Tab PO 12.5 mg BID MARK Administration Clopidogrel Bisulfate 75 mg 09/21/20 21:00 09/22/20 10:25 Clopidogrel 75 Mg Tab PO 75 mg QDAY [facility] Administration Famotidine 20 mg 09/23/20 10:00 Famotidine 20 Mg Tab PO DAILY [facility] Heparin Sodium (Porcine) 5,000 unit 09/21/20 22:00 09/22/20 10:25 Heparin 5,000 Unit/1 Ml Vial SUB-Q 5,000 unit Q12HR [facility] Administration Hydralazine HCl 10 mg 09/21/20 20:50 09/22/20 02:57 Hydralazine 20 Mg/1 Ml Inj IV 10 mg Q3H PRN Administration Blood Pressure Hydromorphone HCl 0.5 mg 09/21/20 20:33 Hydromorphone 1 Mg/1 Ml Inj IV Q3H PRN Pain , Severe (7-10) Ibuprofen 600 mg 09/21/20 20:33 Ibuprofen 600 Mg Tab PO Q6H PRN Pain, Mild (1-3) Insulin Human Lispro 0 unit 09/21/20 22:00 09/22/20 10:26 Insulin Lispro 100 Unit/Ml SUB-Q 2 unit ACHS MARK Administration Protocol Morphine Sulfate 2 mg 09/21/20 20:33 Morphine 2 Mg/1 Ml Inj IV Q4H PRN Pain, Moderate (4-6) Ondansetron HCl 4 mg 09/21/20 20:33 Ondansetron 4 Mg/2 Ml Inj IV Q8H PRN Nausea And Vomiting Sodium Chloride 10 ml 09/21/20 22:00 09/22/20 10:28 Sodium Chloride 0.9% 10 Ml Flush Syringe IV 10 ml BID MARK Administration Sodium Chloride 10 ml 09/21/20 20:33 Sodium Chloride 0.9% 10 Ml Flush Syringe IV PRN PRN LINE FLUSH Valsartan 160 mg 09/21/20 21:00 09/22/20 10:28 Valsartan 160mg Tab PO 160 mg Q12H [facility] Administration
--- NOTE | 2020-09-22 12:12 | Vascular Lab Report ---
VL carotid duplex BILAT INDICATION / CLINICAL INFORMATION: Stroke COMPARISON: None available. FINDINGS: RIGHT CAROTID: - CCA velocity: 140 cm/sec. - ICA peak systolic velocity: 94 cm/sec. - ICA/CCA PSV Ratio: Less than 2 Right Vertebral Artery: Antegrade flow. LEFT CAROTID: - CCA velocity: 138 cm/sec. - ICA peak systolic velocity: 118 cm/sec. - ICA/CCA PSV Ratio: Less than 2 Left Vertebral Artery: Antegrade flow. IMPRESSION: 1. No occlusion or hemodynamically significant stenosis of the bilateral carotid arteries. Velocity criteria are extrapolated from diameter data as defined by the Society of Radiologists in Ul trasound Consensus Conference, Radiology 2003; 229;340-346. NO STENOSIS (NORMAL) * Plaque = none; ICA PSV < 125 cm/sec; ICA/CCA PSV Ratio < 2.0 <50% STENOSIS * Plaque < 50%; ICA PSV < 125 cm/sec; ICA/CCA PSV Ratio < 2.0 50-69% STENOSIS * Plaque > 50%; ICA PSV = 125-230 cm/sec; ICA/CCA PSV Ratio = 2.0-4.0 >70% BUT <100% STENOSIS * Plaque > 50%; ICA PSV > 230 cm/sec; ICA/CCA PSV Ratio > 4.0 NEAR OCCLUSION * Plaque = visible lumen; ICA PSV = high/low/none; ICA/CCA PSV Ratio = variable TOTAL OCCLUSION * Plaque = no lumen; ICA PSV = none; ICA/CCA PSV Ratio = N/A Signer Name: Mitchel Perez MD Signed: 09/22/2020 12:07 PM Workstation Name: [id number]
--- NOTE | 2020-09-22 17:05 | Cat Scan Report ---
CT angio head, CT angio neck HISTORY: Infarction COMPARISON: MRI brain from September 22 2020. TECHNIQUE: CTA of the neck and head is performed after IV contrast. 3-D/MIP reformats were postproces sed. Percentage stenosis is determined by direct quantitative measurements of diseased internal shepard tid artery diameter compared with normal distal internal carotid artery reference segments or by crit ercleopatra similar to NASCET where applicable. All CT scans at this location are performed using CT dose re duction for ALARA by means of automated exposure control. 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 Common Carotid arteries: No occlusion or hemodynamically significant stenosis. Internal carotid arteries: Mild atherosclerosis of the proximal internal carotid arteries. A carotid with of the proximal left ICA as seen on sagittal image 83 of series 608. No occlusion or hemodynamic ally significant stenosis. CTA HEAD: Intracranial internal carotid arteries: Moderate quantity of atherosclerosis of the carotid siphons b ut no occlusion or significant stenosis. Anterior cerebral arteries: Moderate narrowing seen within the A2 segments. Middle cerebral arteries: Mild bilateral atherosclerotic narrowing. Intracranial vertebral arteries: Occluded left distal V3 and V4 segments of the vertebral artery. Min imal retrograde filling of the distal left V4 segment. High-grade stenosis seen within the right V4 s egment with near occlusion seen on image 30 of series 3. Basilar artery: Atherosclerosis with high-grade stenosis of the distal basilar artery. No occlusion. Posterior cerebral arteries: Multifocal stenosis with high-grade stenosis seen within the P2 segments . No aneurysm. Additional findings: None. IMPRESSION: 1. CTA NECK: Occlusion of the distal vertebral artery. 2. CTA HEAD: High-grade stenosis of the right V4 vertebral artery segment. Multifocal atherosclerotic narrowing with high-grade stenosis seen within the basilar artery and posterior cerebral arteries. P lease see above for additional details. 3. Right-sided type II aortic arch. Signer Name: Mitchel Perez MD Signed: 09/22/2020 5:01 PM Workstation Name: [email or web address]
[2020-09-23] MEDS: INSULIN LISPRO 100 UNIT/ML SUB-Q SCH ×4 (08:15→22:08)
[2020-09-23] MEDS: carvediloL 12.5 MG TAB PO SCH ×2 (09:26→22:09)
[2020-09-23] MEDS: CLOPIDOGREL 75 MG TAB PO SCH (09:27)
[2020-09-23] MEDS: FAMOTIDINE 20 MG TAB PO SCH (09:27)
[2020-09-23] MEDS: ASPIRIN 325 MG TAB PO SCH (09:27)
[2020-09-23] MEDS: HEPARIN 5,000 UNIT/1 ML VIAL SUB-Q SCH ×2 (09:27→22:10)
[2020-09-23] MEDS: amLODIPine 10 MG TAB PO SCH (09:28)
[2020-09-23] MEDS: VALSARTAN 160MG TAB PO SCH ×2 (09:30→22:09)
--- NOTE | 2020-09-23 09:57 | Progress Note ---
Assessment and Plan Assessment and plan: Acute left pontine CVA. Patient with dysarthria/dysphagia/right hemiparesis Hypertension. Diabetes mellitus type 2 Dyslipidemia 09/22/2020. Continue aspirin and lipids for secondary prevention. Neurology ordered CTA Head/Neck w/ & w/o contrast. PT/OT/ST/Swallow evaluation. Long- term risk-factor modification, including a strict diet/exercise regimen for secondary stroke prophylaxis. 09/23/2020. MRI reveals subacute left pontine infarction. CTA of the head and neck reveals occlusion of the distal vertebral artery and high-grade stenosis of the right V4 vertebral artery segment. Multifocal atherosclerotic narrowing with high-grade stenosis seen within the basilar artery and posterior cerebral arteries. Carotid ultrasound is negative for stenosis. Echocardiogram reveals EF of 55 to 60% with mild diastolic dysfunction. No evidence of PFO. Continue aspirin and Lipitor. Neurology following. We have allow for permissive hypertension but will now lower blood pressure. DC Norvasc and start Procardia XL 60 mg twice daily History Interval history: No new issues overnight Hospitalist Physical - Constitutional Vitals: Temp Pulse Resp BP Pulse Ox 97.8 F 70 18 198/91 96 09/23/20 08:09 09/23/20 09:30 09/23/20 08:09 09/23/20 09:30 09/23/20 08:09 General appearance: Present: no acute distress, well-nourished - EENT Eyes: Present: PERRL, EOM intact ENT: hearing intact, clear oral mucosa, dentition normal - Neck Neck: Present: supple, normal ROM - Respiratory Respiratory effort: normal Respiratory: bilateral: CTA - Cardiovascular Rhythm: regular Heart Sounds: Present: S1 & S2. Absent: gallop, rub - Extremities Extremities: no ischemia, No edema, Full ROM - Abdominal General gastrointestinal: soft, non-tender, non-distended, normal bowel sounds - Integumentary Integumentary: Present: clear, warm, dry - Neurologic Neurologic: CNII-XII intact, other (Right hemiparesis) HEART Score - HEART Score Risk factors: 1-2 risk factors Troponin: Troponin T < 0.010 ng/mL (0.00-0.029) 09/21/20 15:11 Troponin: < normal limit - Critical Actions Critical Actions: 0-3 pts:0.9-1.7%risk of adverse cardiac event.Candidate for discharge Results - Labs CBC & Chem 7: 09/22/20 04:57 09/22/20 04:57 Labs: Laboratory Last Values WBC 5.8 K/mm3 (4.5-11.0) 09/22/20 04:57 RBC 4.77 M/mm3 (3.65-5.03) 09/22/20 04:57 Hgb 15.0 gm/dl (11.8-15.2) 09/22/20 04:57 Hct 44.2 % (35.5-45.6) 09/22/20 04:57 MCV 93 fl (84-94) 09/22/20 04:57 MCH 31 pg (28-32) 09/22/20 04:57 MCHC 34 % (32-34) 09/22/20 04:57 RDW 15.2 % (13.2-15.2) 09/22/20 04:57 Plt Count 183 K/mm3 (140-440) 09/22/20 04:57 Lymph % (Auto) 32.0 % (13.4-35.0) 09/22/20 04:57 [place] % (Auto) 10.8 % (0.0-7.3) H 09/22/20 04:57 Eos % (Auto) 2.3 % (0.0-4.3) 09/22/20 04:57 Baso % (Auto) 0.5 % (0.0-1.8) 09/22/20 04:57 Lymph # (Auto) 1.9 K/mm3 (1.2-5.4) 09/22/20 04:57 [place] # (Auto) 0.6 K/mm3 (0.0-0.8) 09/22/20 04:57 Eos # (Auto) 0.1 K/mm3 (0.0-0.4) 09/22/20 04:57 Baso # (Auto) 0.0 K/mm3 (0.0-0.1) 09/22/20 04:57 Seg Neutrophils % 54.4 % (40.0-70.0) 09/22/20 04:57 Seg Neutrophils # 3.2 K/mm3 (1.8-7.7) 09/22/20 04:57 PT 12.2 Sec. (12.2-14.9) 09/21/20 15:11 INR 0.91 (0.87-1.13) 09/21/20 15:11 APTT 27.6 Sec. (24.2-36.6) 09/21/20 15:11 Sodium 133 mmol/L (137-145) L 09/22/20 04:57 Potassium 3.9 mmol/L (3.6-5.0) 09/22/20 04:57 Chloride 96.5 mmol/L (98-107) L 09/22/20 04:57 Carbon Dioxide 28 mmol/L (22-30) 09/22/20 04:57 Anion Gap 12 mmol/L 09/22/20 04:57 BUN 19 mg/dL (9-20) 09/22/20 04:57 Creatinine 1.9 mg/dL (0.8-1.3) H D 09/22/20 04:57 Estimated GFR 43 ml/min 09/22/20 04:57 BUN/Creatinine Ratio 10 % 09/22/20 04:57 Glucose 86 mg/dL (75-100) 09/22/20 04:57 POC Glucose 112 mg/dL (70-105) H 09/22/20 21:00 Hemoglobin A1c 7.2 % (4-6) H 09/22/20 04:57 Calcium 9.1 mg/dL (8.4-10.2) 09/22/20 04:57 Magnesium 1.90 mg/dL (1.7-2.3) 09/21/20 15:11 Total Bilirubin 0.30 mg/dL (0.1-1.2) 09/22/20 04:57 AST 21 units/L (5-40) 09/22/20 04:57 ALT 14 units/L (7-56) 09/22/20 04:57 Alkaline Phosphatase 67 units/L (35-129) 09/22/20 04:57 Total Creatine Kinase 139 units/L (55-170) 09/21/20 15:11 Troponin T < 0.010 ng/mL (0.00-0.029) 09/21/20 15:11 Total Protein 6.6 g/dL (6.3-8.2) 09/22/20 04:57 Albumin 3.7 g/dL (3.9-5) L 09/22/20 04:57 Albumin/Globulin Ratio 1.3 % 09/22/20 04:57 Triglycerides 502 mg/dL (2-149) H 09/22/20 04:57 Cholesterol 225 mg/dL (50-199) H 09/22/20 04:57 LDL Cholesterol Direct TNR 09/22/20 04:57 HDL Cholesterol 36 mg/dL (40-59) L 09/22/20 04:57 Cholesterol/HDL Ratio 6.25 % 09/22/20 04:57 Mart/IV: Voiding Method Toilet Active Medications - Current Medications Current Medications: Generic Name Dose Route Start Last Admin Trade Name Freq PRN Reason Stop Dose Admin Acetaminophen 650 mg 09/21/20 20:33 09/22/20 02:58 Acetaminophen 325 Mg Tab PO 650 mg Q4H PRN Administration Pain MILD(1-3)/Fever >100.5/MELO Amlodipine Besylate 10 mg 09/21/20 21:00 09/23/20 09:28 Amlodipine 10 Mg Tab PO 10 mg QDAY MARK Administration Aspirin 325 mg 09/22/20 10:00 09/23/20 09:27 Aspirin 325 Mg Tab PO 325 mg QDAY MARK Administration Atorvastatin Calcium 40 mg 09/21/20 22:00 09/22/20 21:42 Atorvastatin 40 Mg Tab PO 40 mg QHS MARK Administration Carvedilol 12.5 mg 09/21/20 22:00 09/23/20 09:26 Carvedilol 12.5 Mg Tab PO 12.5 mg BID MARK Administration Clopidogrel Bisulfate 75 mg 09/21/20 21:00 09/23/20 09:27 Clopidogrel 75 Mg Tab PO 75 mg QDAY MRAK Administration Famotidine 20 mg 09/23/20 10:00 09/23/20 09:27 Famotidine 20 Mg Tab PO 20 mg DAILY MARK Administration Heparin Sodium (Porcine) 5,000 unit 09/21/20 22:00 09/23/20 09:27 Heparin 5,000 Unit/1 Ml Vial SUB-Q 5,000 unit Q12HR MARK Administration Hydralazine HCl 10 mg 09/21/20 20:50 09/22/20 02:57 Hydralazine 20 Mg/1 Ml Inj IV 10 mg Q3H PRN Administration Blood Pressure Hydromorphone HCl 0.5 mg 09/21/20 20:33 Hydromorphone 1 Mg/1 Ml Inj IV Q3H PRN Pain , Severe (7-10) Ibuprofen 600 mg 09/21/20 20:33 Ibuprofen 600 Mg Tab PO Q6H PRN Pain, Mild (1-3) Insulin Human Lispro 0 unit 09/21/20 22:00 09/23/20 08:15 Insulin Lispro 100 Unit/Ml SUB-Q Not Given ACHS MARK Protocol Morphine Sulfate 2 mg 09/21/20 20:33 Morphine 2 Mg/1 Ml Inj IV Q4H PRN Pain, Moderate (4-6) Ondansetron HCl 4 mg 09/21/20 20:33 Ondansetron 4 Mg/2 Ml Inj IV Q8H PRN Nausea And Vomiting Sodium Chloride 10 ml 09/21/20 22:00 09/23/20 09:29 Sodium Chloride 0.9% 10 Ml Flush Syringe IV 10 ml BID MARK Administration Sodium Chloride 10 ml 09/21/20 20:33 Sodium Chloride 0.9% 10 Ml Flush Syringe IV PRN PRN LINE FLUSH Valsartan 160 mg 09/21/20 21:00 09/23/20 09:30 Valsartan 160mg Tab PO 160 mg Q12H MARK Administration
[2020-09-23] MEDS: hydrALAZINE 20 MG/1 ML INJ IV PRN (11:48)
[2020-09-23] MEDS: NIFEdipine XL 60 MG TAB PO SCH ×2 (11:48→22:09)
--- NOTE | 2020-09-23 14:09 | Progress Note ---
Assessment and Plan 65 yo male with htn, dm, p/w an acute left pontine stroke. 1. Acute Ischemic Stroke: ASA 325 mg PO qday, initiate Plavix 75 mg PO qday ( ordered) for ICADx, telemetry, may normalize blood pressure slowly. Statin therapy for a goal LDL of 70, when patient passes swallow evaluation. PT/ OT/ST/Swallow evaluation. Long-term risk-factor modification, including a strict diet/exercise regimen for secondary stroke prophylaxis. 2. Hypertension - may normalize blood pressure slowly. 3. Diabetes Mellitus - maintain euglycemia. 4. Dyslipidemia - goal LDL of 70 w/ statin therapy if no contraindications. 5. Dysarthria / Dysphagia - st / swallow evaluation/monitoring. 6. Right-sided weakness - pt/ot evaluation/monitoring. 7. Unsteady Gait - pt/ot evaluation/monitoring. 8. Followup with Stroke Neurology in 4-6 weeks. Vishnu Martin MD Neurology Subjective Date of service: 09/23/20 Interval history: Patient underwent CTA which reveals vertebral artery occlusion with significant posterior circulation ICADx. Objective - Vital Sign Vital Signs - 12hr 09/23/20 09/23/20 09/23/20 05:13 08:09 09:26 Temperature 97.4 F L 97.8 F Pulse Rate 68 70 70 Respiratory 20 18 Rate Blood Pressure 167/82 198/91 198/91 O2 Sat by Pulse 98 96 Oximetry 09/23/20 09/23/20 09/23/20 09:28 09:30 11:41 Temperature 97.8 F Pulse Rate 70 70 Respiratory 18 Rate Blood Pressure 198/91 198/91 172/72 O2 Sat by Pulse Oximetry 09/23/20 11:48 Temperature Pulse Rate 76 Respiratory Rate Blood Pressure 172/72 O2 Sat by Pulse Oximetry - Laboratory Findings CBC and BMP: 09/22/20 04:57 09/22/20 04:57 Abnormal Lab Findings: Abnormal Labs 09/21/20 09/21/20 09/21/20 13:23 15:11 15:11 RBC 5.24 H Hgb 16.4 H Hct 48.2 H [place] % (Auto) 8.2 H Sodium 136 L Chloride Creatinine Glucose 123 H POC Glucose 118 H Hemoglobin A1c Albumin Triglycerides Cholesterol HDL Cholesterol 09/22/20 09/22/20 09/22/20 04:57 04:57 04:57 RBC Hgb Hct [place] % (Auto) 10.8 H Sodium 133 L Chloride 96.5 L Creatinine 1.9 H D Glucose POC Glucose Hemoglobin A1c 7.2 H Albumin 3.7 L Triglycerides 502 H Cholesterol 225 H HDL Cholesterol 36 L 09/22/20 09/22/20 09/22/20 07:27 11:21 16:10 RBC Hgb Hct [place] % (Auto) Sodium Chloride Creatinine Glucose POC Glucose 189 H 205 H 202 H Hemoglobin A1c Albumin Triglycerides Cholesterol HDL Cholesterol 09/22/20 09/23/20 09/23/20 21:00 08:13 11:54 RBC Hgb Hct [place] % (Auto) Sodium Chloride Creatinine Glucose POC Glucose 112 H 130 H 116 H Hemoglobin A1c Albumin Triglycerides Cholesterol HDL Cholesterol
[2020-09-24] MEDS: INSULIN LISPRO 100 UNIT/ML SUB-Q SCH ×4 (07:39→21:40)
--- NOTE | 2020-09-24 09:31 | Progress Note ---
Assessment and Plan Assessment and plan: Acute left pontine CVA. Patient with dysarthria/dysphagia/right hemiparesis Hypertension. Diabetes mellitus type 2 Dyslipidemia 09/22/2020. Continue aspirin and lipids for secondary prevention. Neurology ordered CTA Head/Neck w/ & w/o contrast. PT/OT/ST/Swallow evaluation. Long- term risk-factor modification, including a strict diet/exercise regimen for secondary stroke prophylaxis. 09/23/2020. MRI reveals subacute left pontine infarction. CTA of the head and neck reveals occlusion of the distal vertebral artery and high-grade stenosis of the right V4 vertebral artery segment. Multifocal atherosclerotic narrowing with high-grade stenosis seen within the basilar artery and posterior cerebral arteries. Carotid ultrasound is negative for stenosis. Echocardiogram reveals EF of 55 to 60% with mild diastolic dysfunction. No evidence of PFO. Continue aspirin and Lipitor. Neurology following. We have allow for permissive hypertension but will now lower blood pressure. DC Norvasc and start Procardia XL 60 mg twice daily 09/24/2020. Patient complained of palpitations yesterday briefly around 2 PM. Patient has had no new episodes. Consider discontinuing as needed hydralazine if patient has possible side effects of reflex tachycardia. Continue current blood pressure medications. BP stable systolically in the 150s. Await placement in acute rehab per physical therapy recommendations. Will discuss with case management. History Interval history: No new issues overnight Hospitalist Physical - Constitutional Vitals: Temp Pulse Resp BP Pulse Ox 97.9 F 64 18 154/78 98 09/24/20 07:48 09/24/20 07:48 09/24/20 07:48 09/24/20 07:48 09/24/20 07:48 General appearance: Present: no acute distress, well-nourished - EENT Eyes: Present: PERRL, EOM intact ENT: hearing intact, clear oral mucosa, dentition normal - Neck Neck: Present: supple, normal ROM - Respiratory Respiratory effort: normal Respiratory: bilateral: CTA - Cardiovascular Rhythm: regular Heart Sounds: Present: S1 & S2. Absent: gallop, rub - Extremities Extremities: no ischemia, No edema, Full ROM - Abdominal General gastrointestinal: soft, non-tender, non-distended, normal bowel sounds - Integumentary Integumentary: Present: clear, warm, dry - Neurologic Neurologic: CNII-XII intact, moves all extremities HEART Score - HEART Score Risk factors: 1-2 risk factors Troponin: Troponin T < 0.010 ng/mL (0.00-0.029) 09/21/20 15:11 Troponin: < normal limit - Critical Actions Critical Actions: 0-3 pts:0.9-1.7%risk of adverse cardiac event.Candidate for discharge Results - Labs CBC & Chem 7: 09/22/20 04:57 09/22/20 04:57 Labs: Laboratory Last Values WBC 5.8 K/mm3 (4.5-11.0) 09/22/20 04:57 RBC 4.77 M/mm3 (3.65-5.03) 09/22/20 04:57 Hgb 15.0 gm/dl (11.8-15.2) 09/22/20 04:57 Hct 44.2 % (35.5-45.6) 09/22/20 04:57 MCV 93 fl (84-94) 09/22/20 04:57 MCH 31 pg (28-32) 09/22/20 04:57 MCHC 34 % (32-34) 09/22/20 04:57 RDW 15.2 % (13.2-15.2) 09/22/20 04:57 Plt Count 183 K/mm3 (140-440) 09/22/20 04:57 Lymph % (Auto) 32.0 % (13.4-35.0) 09/22/20 04:57 [place] % (Auto) 10.8 % (0.0-7.3) H 09/22/20 04:57 Eos % (Auto) 2.3 % (0.0-4.3) 09/22/20 04:57 Baso % (Auto) 0.5 % (0.0-1.8) 09/22/20 04:57 Lymph # (Auto) 1.9 K/mm3 (1.2-5.4) 09/22/20 04:57 [place] # (Auto) 0.6 K/mm3 (0.0-0.8) 09/22/20 04:57 Eos # (Auto) 0.1 K/mm3 (0.0-0.4) 09/22/20 04:57 Baso # (Auto) 0.0 K/mm3 (0.0-0.1) 09/22/20 04:57 Seg Neutrophils % 54.4 % (40.0-70.0) 09/22/20 04:57 Seg Neutrophils # 3.2 K/mm3 (1.8-7.7) 09/22/20 04:57 PT 12.2 Sec. (12.2-14.9) 09/21/20 15:11 INR 0.91 (0.87-1.13) 09/21/20 15:11 APTT 27.6 Sec. (24.2-36.6) 09/21/20 15:11 Sodium 133 mmol/L (137-145) L 09/22/20 04:57 Potassium 3.9 mmol/L (3.6-5.0) 09/22/20 04:57 Chloride 96.5 mmol/L (98-107) L 09/22/20 04:57 Carbon Dioxide 28 mmol/L (22-30) 09/22/20 04:57 Anion Gap 12 mmol/L 09/22/20 04:57 BUN 19 mg/dL (9-20) 09/22/20 04:57 Creatinine 1.9 mg/dL (0.8-1.3) H D 09/22/20 04:57 Estimated GFR 43 ml/min 09/22/20 04:57 BUN/Creatinine Ratio 10 % 09/22/20 04:57 Glucose 86 mg/dL (75-100) 09/22/20 04:57 POC Glucose 131 mg/dL (70-105) H 09/24/20 07:53 Hemoglobin A1c 7.2 % (4-6) H 09/22/20 04:57 Calcium 9.1 mg/dL (8.4-10.2) 09/22/20 04:57 Magnesium 1.90 mg/dL (1.7-2.3) 09/21/20 15:11 Total Bilirubin 0.30 mg/dL (0.1-1.2) 09/22/20 04:57 AST 21 units/L (5-40) 09/22/20 04:57 ALT 14 units/L (7-56) 09/22/20 04:57 Alkaline Phosphatase 67 units/L (35-129) 09/22/20 04:57 Total Creatine Kinase 139 units/L (55-170) 09/21/20 15:11 Troponin T < 0.010 ng/mL (0.00-0.029) 09/21/20 15:11 Total Protein 6.6 g/dL (6.3-8.2) 09/22/20 04:57 Albumin 3.7 g/dL (3.9-5) L 09/22/20 04:57 Albumin/Globulin Ratio 1.3 % 09/22/20 04:57 Triglycerides 502 mg/dL (2-149) H 09/22/20 04:57 Cholesterol 225 mg/dL (50-199) H 09/22/20 04:57 LDL Cholesterol Direct TNR 09/22/20 04:57 HDL Cholesterol 36 mg/dL (40-59) L 09/22/20 04:57 Cholesterol/HDL Ratio 6.25 % 09/22/20 04:57 Coronavirus (PCR) Negative (Negative) 09/22/20 10:00 Mart/IV: Voiding Method Toilet Active Medications - Current Medications Current Medications: Generic Name Dose Route Start Last Admin Trade Name Freq PRN Reason Stop Dose Admin Acetaminophen 650 mg 09/21/20 20:33 09/22/20 02:58 Acetaminophen 325 Mg Tab PO 650 mg Q4H PRN Administration Pain MILD(1-3)/Fever >100.5/MELO Aspirin 325 mg 09/22/20 10:00 09/23/20 09:27 Aspirin 325 Mg Tab PO 325 mg QDAY MARK Administration Atorvastatin Calcium 40 mg 09/21/20 22:00 09/23/20 22:09 Atorvastatin 40 Mg Tab PO 40 mg QHS MARK Administration Carvedilol 12.5 mg 09/21/20 22:00 09/23/20 22:09 Carvedilol 12.5 Mg Tab PO 12.5 mg BID MARK Administration Clopidogrel Bisulfate 75 mg 09/21/20 21:00 09/23/20 09:27 Clopidogrel 75 Mg Tab PO 75 mg QDAY MARK Administration Famotidine 20 mg 09/23/20 10:00 09/23/20 09:27 Famotidine 20 Mg Tab PO 20 mg DAILY MARK Administration Heparin Sodium (Porcine) 5,000 unit 09/21/20 22:00 09/23/20 22:10 Heparin 5,000 Unit/1 Ml Vial SUB-Q 5,000 unit Q12HR MARK Administration Hydralazine HCl 10 mg 09/21/20 20:50 09/23/20 11:48 Hydralazine 20 Mg/1 Ml Inj IV 10 mg Q3H PRN Administration Blood Pressure Hydromorphone HCl 0.5 mg 09/21/20 20:33 Hydromorphone 1 Mg/1 Ml Inj IV Q3H PRN Pain , Severe (7-10) Ibuprofen 600 mg 09/21/20 20:33 Ibuprofen 600 Mg Tab PO Q6H PRN Pain, Mild (1-3) Insulin Human Lispro 0 unit 09/21/20 22:00 09/23/20 22:08 Insulin Lispro 100 Unit/Ml SUB-Q Not Given ACHS MARK Protocol Morphine Sulfate 2 mg 09/21/20 20:33 Morphine 2 Mg/1 Ml Inj IV Q4H PRN Pain, Moderate (4-6) Nifedipine 60 mg 09/23/20 12:00 09/23/20 22:09 Nifedipine Xl 60 Mg Tab PO 60 mg Q12HR MARK Administration Ondansetron HCl 4 mg 09/21/20 20:33 Ondansetron 4 Mg/2 Ml Inj IV Q8H PRN Nausea And Vomiting Sodium Chloride 10 ml 09/21/20 22:00 09/23/20 22:11 Sodium Chloride 0.9% 10 Ml Flush Syringe IV 10 ml BID MARK Administration Sodium Chloride 10 ml 09/21/20 20:33 Sodium Chloride 0.9% 10 Ml Flush Syringe IV PRN PRN LINE FLUSH Valsartan 160 mg 09/21/20 21:00 09/23/20 22:09 Valsartan 160mg Tab PO 160 mg Q12H MARK Administration
[2020-09-24] MEDS: ASPIRIN 325 MG TAB PO SCH (09:43)
[2020-09-24] MEDS: carvediloL 12.5 MG TAB PO SCH ×2 (09:43→21:31)
[2020-09-24] MEDS: HEPARIN 5,000 UNIT/1 ML VIAL SUB-Q SCH ×2 (09:43→21:31)
[2020-09-24] MEDS: NIFEdipine XL 60 MG TAB PO SCH ×2 (09:43→21:31)
[2020-09-24] MEDS: CLOPIDOGREL 75 MG TAB PO SCH (09:43)
[2020-09-24] MEDS: FAMOTIDINE 20 MG TAB PO SCH (09:43)
[2020-09-24] MEDS: VALSARTAN 160MG TAB PO SCH ×2 (09:46→21:34)
--- NOTE | 2020-09-24 10:32 | Electrocardiograph Report ---
[facility] Test Date: 2020-09-21 Test Time: 19:54:10 Pat Name: AALIYAH PINZON Department: Room: A469 1 Gender: M [employer] Machine: ISRA : [id number] Requested By: BASIL KAPLAN Order Number: [id number] Reading MD: Mitch Galicia Measurements Intervals [place] Rate: 64 P: 65 [place]: 173 QRS: 23 QRSD: 92 T: 170 QT: 432 QTc: 442 Interpretive Statements Sinus rhythm Atrial premature complex Probable left atrial enlargement LVH WITH SECONDARY REPOLARIZATION ABNORMALITY No previous ECG available for comparison Electronically Signed On 09-24-2020 10:32:09 EDT by Mitch Galicia
[2020-09-25] MEDS: INSULIN LISPRO 100 UNIT/ML SUB-Q SCH ×4 (08:24→23:13)
--- NOTE | 2020-09-25 09:13 | Progress Note ---
Assessment and Plan Assessment and plan: Acute left pontine CVA. Patient with dysarthria/dysphagia/right hemiparesis Hypertension. Diabetes mellitus type 2 Dyslipidemia 09/22/2020. Continue aspirin and lipids for secondary prevention. Neurology ordered CTA Head/Neck w/ & w/o contrast. PT/OT/ST/Swallow evaluation. Long- term risk-factor modification, including a strict diet/exercise regimen for secondary stroke prophylaxis. 09/23/2020. MRI reveals subacute left pontine infarction. CTA of the head and neck reveals occlusion of the distal vertebral artery and high-grade stenosis of the right V4 vertebral artery segment. Multifocal atherosclerotic narrowing with high-grade stenosis seen within the basilar artery and posterior cerebral arteries. Carotid ultrasound is negative for stenosis. Echocardiogram reveals EF of 55 to 60% with mild diastolic dysfunction. No evidence of PFO. Continue aspirin and Lipitor. Neurology following. We have allow for permissive hypertension but will now lower blood pressure. DC Norvasc and start Procardia XL 60 mg twice daily 09/24/2020. Patient complained of palpitations yesterday briefly around 2 PM. Patient has had no new episodes. Consider discontinuing as needed hydralazine if patient has possible side effects of reflex tachycardia. Continue current blood pressure medications. BP stable systolically in the 150s. Await placement in acute rehab per physical therapy recommendations. Will discuss with case management. 09/25/2020. No new issues overnight. Blood pressure remains relatively stable. Consider increasing Procardia for normotension. Continue aspirin and Lipitor. Await placement for acute rehab facility. History Interval history: No new issues overnight Hospitalist Physical - Constitutional Vitals: Temp Pulse Resp BP Pulse Ox 98.1 F 73 18 157/76 97 09/25/20 07:56 09/25/20 08:00 09/25/20 07:56 09/25/20 07:56 09/25/20 07:56 General appearance: Present: no acute distress, well-nourished - EENT Eyes: Present: PERRL, EOM intact ENT: hearing intact, clear oral mucosa, dentition normal - Neck Neck: Present: supple, normal ROM - Respiratory Respiratory effort: normal Respiratory: bilateral: CTA - Cardiovascular Rhythm: regular Heart Sounds: Present: S1 & S2. Absent: gallop, rub - Extremities Extremities: no ischemia, No edema, Full ROM - Abdominal General gastrointestinal: soft, non-tender, non-distended, normal bowel sounds - Integumentary Integumentary: Present: clear, warm, dry - Neurologic Neurologic: CNII-XII intact, moves all extremities HEART Score - HEART Score Risk factors: 1-2 risk factors Troponin: Troponin T < 0.010 ng/mL (0.00-0.029) 09/21/20 15:11 Troponin: < normal limit - Critical Actions Critical Actions: 0-3 pts:0.9-1.7%risk of adverse cardiac event.Candidate for discharge Results - Labs CBC & Chem 7: 09/22/20 04:57 09/22/20 04:57 Labs: Laboratory Last Values WBC 5.8 K/mm3 (4.5-11.0) 09/22/20 04:57 RBC 4.77 M/mm3 (3.65-5.03) 09/22/20 04:57 Hgb 15.0 gm/dl (11.8-15.2) 09/22/20 04:57 Hct 44.2 % (35.5-45.6) 09/22/20 04:57 MCV 93 fl (84-94) 09/22/20 04:57 MCH 31 pg (28-32) 09/22/20 04:57 MCHC 34 % (32-34) 09/22/20 04:57 RDW 15.2 % (13.2-15.2) 09/22/20 04:57 Plt Count 183 K/mm3 (140-440) 09/22/20 04:57 Lymph % (Auto) 32.0 % (13.4-35.0) 09/22/20 04:57 [place] % (Auto) 10.8 % (0.0-7.3) H 09/22/20 04:57 Eos % (Auto) 2.3 % (0.0-4.3) 09/22/20 04:57 Baso % (Auto) 0.5 % (0.0-1.8) 09/22/20 04:57 Lymph # (Auto) 1.9 K/mm3 (1.2-5.4) 09/22/20 04:57 [place] # (Auto) 0.6 K/mm3 (0.0-0.8) 09/22/20 04:57 Eos # (Auto) 0.1 K/mm3 (0.0-0.4) 09/22/20 04:57 Baso # (Auto) 0.0 K/mm3 (0.0-0.1) 09/22/20 04:57 Seg Neutrophils % 54.4 % (40.0-70.0) 09/22/20 04:57 Seg Neutrophils # 3.2 K/mm3 (1.8-7.7) 09/22/20 04:57 PT 12.2 Sec. (12.2-14.9) 09/21/20 15:11 INR 0.91 (0.87-1.13) 09/21/20 15:11 APTT 27.6 Sec. (24.2-36.6) 09/21/20 15:11 Sodium 133 mmol/L (137-145) L 09/22/20 04:57 Potassium 3.9 mmol/L (3.6-5.0) 09/22/20 04:57 Chloride 96.5 mmol/L (98-107) L 09/22/20 04:57 Carbon Dioxide 28 mmol/L (22-30) 09/22/20 04:57 Anion Gap 12 mmol/L 09/22/20 04:57 BUN 19 mg/dL (9-20) 09/22/20 04:57 Creatinine 1.9 mg/dL (0.8-1.3) H D 09/22/20 04:57 Estimated GFR 43 ml/min 09/22/20 04:57 BUN/Creatinine Ratio 10 % 09/22/20 04:57 Glucose 86 mg/dL (75-100) 09/22/20 04:57 POC Glucose 165 mg/dL (70-105) H 09/24/20 21:40 Hemoglobin A1c 7.2 % (4-6) H 09/22/20 04:57 Calcium 9.1 mg/dL (8.4-10.2) 09/22/20 04:57 Magnesium 1.90 mg/dL (1.7-2.3) 09/21/20 15:11 Total Bilirubin 0.30 mg/dL (0.1-1.2) 09/22/20 04:57 AST 21 units/L (5-40) 09/22/20 04:57 ALT 14 units/L (7-56) 09/22/20 04:57 Alkaline Phosphatase 67 units/L (35-129) 09/22/20 04:57 Total Creatine Kinase 139 units/L (55-170) 09/21/20 15:11 Troponin T < 0.010 ng/mL (0.00-0.029) 09/21/20 15:11 Total Protein 6.6 g/dL (6.3-8.2) 09/22/20 04:57 Albumin 3.7 g/dL (3.9-5) L 09/22/20 04:57 Albumin/Globulin Ratio 1.3 % 09/22/20 04:57 Triglycerides 502 mg/dL (2-149) H 09/22/20 04:57 Cholesterol 225 mg/dL (50-199) H 09/22/20 04:57 LDL Cholesterol Direct TNR 09/22/20 04:57 HDL Cholesterol 36 mg/dL (40-59) L 09/22/20 04:57 Cholesterol/HDL Ratio 6.25 % 09/22/20 04:57 Coronavirus (PCR) Negative (Negative) 09/22/20 10:00 Mart/IV: Voiding Method Toilet Active Medications - Current Medications Current Medications: Generic Name Dose Route Start Last Admin Trade Name Freq PRN Reason Stop Dose Admin Acetaminophen 650 mg 09/21/20 20:33 09/22/20 02:58 Acetaminophen 325 Mg Tab PO 650 mg Q4H PRN Administration Pain MILD(1-3)/Fever >100.5/MELO Aspirin 325 mg 09/22/20 10:00 09/24/20 09:43 Aspirin 325 Mg Tab PO 325 mg QDAY MARK Administration Atorvastatin Calcium 40 mg 09/21/20 22:00 09/24/20 21:31 Atorvastatin 40 Mg Tab PO 40 mg QHS MARK Administration Carvedilol 12.5 mg 09/21/20 22:00 09/24/20 21:31 Carvedilol 12.5 Mg Tab PO 12.5 mg BID MARK Administration Clopidogrel Bisulfate 75 mg 09/21/20 21:00 09/24/20 09:43 Clopidogrel 75 Mg Tab PO 75 mg QDAY MARK Administration Famotidine 20 mg 09/23/20 10:00 09/24/20 09:43 Famotidine 20 Mg Tab PO 20 mg DAILY MARK Administration Heparin Sodium (Porcine) 5,000 unit 09/21/20 22:00 09/24/20 21:31 Heparin 5,000 Unit/1 Ml Vial SUB-Q 5,000 unit Q12HR MARK Administration Hydralazine HCl 10 mg 09/21/20 20:50 09/23/20 11:48 Hydralazine 20 Mg/1 Ml Inj IV 10 mg Q3H PRN Administration Blood Pressure Hydromorphone HCl 0.5 mg 09/21/20 20:33 Hydromorphone 1 Mg/1 Ml Inj IV Q3H PRN Pain , Severe (7-10) Ibuprofen 600 mg 09/21/20 20:33 Ibuprofen 600 Mg Tab PO Q6H PRN Pain, Mild (1-3) Insulin Human Lispro 0 unit 09/21/20 22:00 09/25/20 08:24 Insulin Lispro 100 Unit/Ml SUB-Q 2 unit ACHS MARK Administration Protocol Morphine Sulfate 2 mg 09/21/20 20:33 Morphine 2 Mg/1 Ml Inj IV Q4H PRN Pain, Moderate (4-6) Nifedipine 60 mg 09/23/20 12:00 09/24/20 21:31 Nifedipine Xl 60 Mg Tab PO 60 mg Q12HR MARK Administration Ondansetron HCl 4 mg 09/21/20 20:33 Ondansetron 4 Mg/2 Ml Inj IV Q8H PRN Nausea And Vomiting Sodium Chloride 10 ml 09/21/20 22:00 09/24/20 21:35 Sodium Chloride 0.9% 10 Ml Flush Syringe IV 10 ml BID MARK Administration Sodium Chloride 10 ml 09/21/20 20:33 Sodium Chloride 0.9% 10 Ml Flush Syringe IV PRN PRN LINE FLUSH Valsartan 160 mg 09/21/20 21:00 09/24/20 21:34 Valsartan 160mg Tab PO 160 mg Q12H MARK Administration
[2020-09-25] MEDS: carvediloL 12.5 MG TAB PO SCH ×2 (10:23→21:26)
[2020-09-25] MEDS: NIFEdipine XL 60 MG TAB PO SCH ×2 (10:23→21:26)
[2020-09-25] MEDS: ASPIRIN 325 MG TAB PO SCH (10:23)
[2020-09-25] MEDS: CLOPIDOGREL 75 MG TAB PO SCH (10:23)
[2020-09-25] MEDS: FAMOTIDINE 20 MG TAB PO SCH (10:24)
[2020-09-25] MEDS: HEPARIN 5,000 UNIT/1 ML VIAL SUB-Q SCH ×2 (10:24→21:26)
[2020-09-25] MEDS: VALSARTAN 160MG TAB PO SCH (21:27)
[2020-09-26] MEDS: INSULIN LISPRO 100 UNIT/ML SUB-Q SCH ×3 (08:54→22:07)
[2020-09-26] MEDS: CLOPIDOGREL 75 MG TAB PO SCH (09:00)
[2020-09-26] MEDS: NIFEdipine XL 60 MG TAB PO SCH ×2 (09:00→21:43)
[2020-09-26] MEDS: FAMOTIDINE 20 MG TAB PO SCH (09:00)
[2020-09-26] MEDS: ASPIRIN 325 MG TAB PO SCH (09:01)
[2020-09-26] MEDS: carvediloL 12.5 MG TAB PO SCH ×2 (09:01→21:44)
[2020-09-26] MEDS: HEPARIN 5,000 UNIT/1 ML VIAL SUB-Q SCH ×2 (09:03→21:44)
[2020-09-26] MEDS: VALSARTAN 160MG TAB PO SCH ×3 (09:03→21:43)
--- NOTE | 2020-09-26 09:26 | Progress Note ---
Assessment and Plan Assessment and plan: Acute left pontine CVA. Patient with dysarthria/dysphagia/right hemiparesis Hypertension. Diabetes mellitus type 2 Dyslipidemia 09/22/2020. Continue aspirin and lipids for secondary prevention. Neurology ordered CTA Head/Neck w/ & w/o contrast. PT/OT/ST/Swallow evaluation. Long- term risk-factor modification, including a strict diet/exercise regimen for secondary stroke prophylaxis. 09/23/2020. MRI reveals subacute left pontine infarction. CTA of the head and neck reveals occlusion of the distal vertebral artery and high-grade stenosis of the right V4 vertebral artery segment. Multifocal atherosclerotic narrowing with high-grade stenosis seen within the basilar artery and posterior cerebral arteries. Carotid ultrasound is negative for stenosis. Echocardiogram reveals EF of 55 to 60% with mild diastolic dysfunction. No evidence of PFO. Continue aspirin and Lipitor. Neurology following. We have allow for permissive hypertension but will now lower blood pressure. DC Norvasc and start Procardia XL 60 mg twice daily 09/24/2020. Patient complained of palpitations yesterday briefly around 2 PM. Patient has had no new episodes. Consider discontinuing as needed hydralazine if patient has possible side effects of reflex tachycardia. Continue current blood pressure medications. BP stable systolically in the 150s. Await placement in acute rehab per physical therapy recommendations. Will discuss with case management. 09/25/2020. No new issues overnight. Blood pressure remains relatively stable. Consider increasing Procardia for normotension. Continue aspirin and Lipitor. Await placement for acute rehab facility. 09/26/2020. Blood pressure remains stable continue current dosing of Procardia. Continue aspirin and Lipitor. Await placement to acute rehab facility. History Interval history: No new issues overnight Hospitalist Physical - Constitutional Vitals: Temp Pulse Resp BP Pulse Ox 97.5 F L 70 18 158/87 99 09/26/20 07:30 09/26/20 09:07 09/26/20 07:30 09/26/20 09:07 09/26/20 07:30 General appearance: Present: no acute distress, well-nourished - EENT Eyes: Present: PERRL, EOM intact ENT: hearing intact, clear oral mucosa, dentition normal - Neck Neck: Present: supple, normal ROM - Respiratory Respiratory effort: normal Respiratory: bilateral: CTA - Cardiovascular Rhythm: regular Heart Sounds: Present: S1 & S2. Absent: gallop, rub - Extremities Extremities: no ischemia, No edema, Full ROM - Abdominal General gastrointestinal: soft, non-tender, non-distended, normal bowel sounds - Integumentary Integumentary: Present: clear, warm, dry - Neurologic Neurologic: CNII-XII intact, moves all extremities HEART Score - HEART Score Risk factors: 1-2 risk factors Troponin: Troponin T < 0.010 ng/mL (0.00-0.029) 09/21/20 15:11 Troponin: < normal limit - Critical Actions Critical Actions: 0-3 pts:0.9-1.7%risk of adverse cardiac event.Candidate for discharge Results - Labs CBC & Chem 7: 09/22/20 04:57 09/22/20 04:57 Labs: Laboratory Last Values WBC 5.8 K/mm3 (4.5-11.0) 09/22/20 04:57 RBC 4.77 M/mm3 (3.65-5.03) 09/22/20 04:57 Hgb 15.0 gm/dl (11.8-15.2) 09/22/20 04:57 Hct 44.2 % (35.5-45.6) 09/22/20 04:57 MCV 93 fl (84-94) 09/22/20 04:57 MCH 31 pg (28-32) 09/22/20 04:57 MCHC 34 % (32-34) 09/22/20 04:57 RDW 15.2 % (13.2-15.2) 09/22/20 04:57 Plt Count 183 K/mm3 (140-440) 09/22/20 04:57 Lymph % (Auto) 32.0 % (13.4-35.0) 09/22/20 04:57 Lane % (Auto) 10.8 % (0.0-7.3) H 09/22/20 04:57 Eos % (Auto) 2.3 % (0.0-4.3) 09/22/20 04:57 Baso % (Auto) 0.5 % (0.0-1.8) 09/22/20 04:57 Lymph # (Auto) 1.9 K/mm3 (1.2-5.4) 09/22/20 04:57 Lane # (Auto) 0.6 K/mm3 (0.0-0.8) 09/22/20 04:57 Eos # (Auto) 0.1 K/mm3 (0.0-0.4) 09/22/20 04:57 Baso # (Auto) 0.0 K/mm3 (0.0-0.1) 09/22/20 04:57 Seg Neutrophils % 54.4 % (40.0-70.0) 09/22/20 04:57 Seg Neutrophils # 3.2 K/mm3 (1.8-7.7) 09/22/20 04:57 PT 12.2 Sec. (12.2-14.9) 09/21/20 15:11 INR 0.91 (0.87-1.13) 09/21/20 15:11 APTT 27.6 Sec. (24.2-36.6) 09/21/20 15:11 Sodium 133 mmol/L (137-145) L 09/22/20 04:57 Potassium 3.9 mmol/L (3.6-5.0) 09/22/20 04:57 Chloride 96.5 mmol/L (98-107) L 09/22/20 04:57 Carbon Dioxide 28 mmol/L (22-30) 09/22/20 04:57 Anion Gap 12 mmol/L 09/22/20 04:57 BUN 19 mg/dL (9-20) 09/22/20 04:57 Creatinine 1.9 mg/dL (0.8-1.3) H D 09/22/20 04:57 Estimated GFR 43 ml/min 09/22/20 04:57 BUN/Creatinine Ratio 10 % 09/22/20 04:57 Glucose 86 mg/dL (75-100) 09/22/20 04:57 POC Glucose 128 mg/dL (70-105) H 09/25/20 21:49 Hemoglobin A1c 7.2 % (4-6) H 09/22/20 04:57 Calcium 9.1 mg/dL (8.4-10.2) 09/22/20 04:57 Magnesium 1.90 mg/dL (1.7-2.3) 09/21/20 15:11 Total Bilirubin 0.30 mg/dL (0.1-1.2) 09/22/20 04:57 AST 21 units/L (5-40) 09/22/20 04:57 ALT 14 units/L (7-56) 09/22/20 04:57 Alkaline Phosphatase 67 units/L (35-129) 09/22/20 04:57 Total Creatine Kinase 139 units/L (55-170) 09/21/20 15:11 Troponin T < 0.010 ng/mL (0.00-0.029) 09/21/20 15:11 Total Protein 6.6 g/dL (6.3-8.2) 09/22/20 04:57 Albumin 3.7 g/dL (3.9-5) L 09/22/20 04:57 Albumin/Globulin Ratio 1.3 % 09/22/20 04:57 Triglycerides 502 mg/dL (2-149) H 09/22/20 04:57 Cholesterol 225 mg/dL (50-199) H 09/22/20 04:57 LDL Cholesterol Direct TNR 09/22/20 04:57 HDL Cholesterol 36 mg/dL (40-59) L 09/22/20 04:57 Cholesterol/HDL Ratio 6.25 % 09/22/20 04:57 Coronavirus (PCR) Negative (Negative) 09/22/20 10:00 Mart/IV: Voiding Method Toilet Active Medications - Current Medications Current Medications: Generic Name Dose Route Start Last Admin Trade Name Freq PRN Reason Stop Dose Admin Acetaminophen 650 mg 09/21/20 20:33 09/22/20 02:58 Acetaminophen 325 Mg Tab PO 650 mg Q4H PRN Administration Pain MILD(1-3)/Fever >100.5/MELO Aspirin 325 mg 09/22/20 10:00 09/26/20 09:01 Aspirin 325 Mg Tab PO 325 mg QDAY MARK Administration Atorvastatin Calcium 40 mg 09/21/20 22:00 09/25/20 21:26 Atorvastatin 40 Mg Tab PO 40 mg QHS MARK Administration Carvedilol 12.5 mg 09/21/20 22:00 09/26/20 09:01 Carvedilol 12.5 Mg Tab PO 12.5 mg BID MARK Administration Clopidogrel Bisulfate 75 mg 09/21/20 21:00 09/26/20 09:00 Clopidogrel 75 Mg Tab PO 75 mg QDAY MARK Administration Famotidine 20 mg 09/23/20 10:00 09/26/20 09:00 Famotidine 20 Mg Tab PO 20 mg DAILY MARK Administration Heparin Sodium (Porcine) 5,000 unit 09/21/20 22:00 09/26/20 09:03 Heparin 5,000 Unit/1 Ml Vial SUB-Q 5,000 unit Q12HR MARK Administration Hydralazine HCl 10 mg 09/21/20 20:50 09/23/20 11:48 Hydralazine 20 Mg/1 Ml Inj IV 10 mg Q3H PRN Administration Blood Pressure Hydromorphone HCl 0.5 mg 09/21/20 20:33 Hydromorphone 1 Mg/1 Ml Inj IV Q3H PRN Pain , Severe (7-10) Ibuprofen 600 mg 09/21/20 20:33 Ibuprofen 600 Mg Tab PO Q6H PRN Pain, Mild (1-3) Insulin Human Lispro 0 unit 09/21/20 22:00 09/26/20 08:54 Insulin Lispro 100 Unit/Ml SUB-Q 2 unit ACHS MARK Administration Protocol Morphine Sulfate 2 mg 09/21/20 20:33 Morphine 2 Mg/1 Ml Inj IV Q4H PRN Pain, Moderate (4-6) Nifedipine 60 mg 09/23/20 12:00 09/26/20 09:00 Nifedipine Xl 60 Mg Tab PO 60 mg Q12HR MARK Administration Ondansetron HCl 4 mg 09/21/20 20:33 Ondansetron 4 Mg/2 Ml Inj IV Q8H PRN Nausea And Vomiting Sodium Chloride 10 ml 09/21/20 22:00 09/25/20 21:28 Sodium Chloride 0.9% 10 Ml Flush Syringe IV 10 ml BID MARK Administration Sodium Chloride 10 ml 09/21/20 20:33 Sodium Chloride 0.9% 10 Ml Flush Syringe IV PRN PRN LINE FLUSH Valsartan 160 mg 09/21/20 21:00 09/26/20 09:07 Valsartan 160mg Tab PO 160 mg Q12H MARK Administration
[2020-09-27] MEDS: INSULIN LISPRO 100 UNIT/ML SUB-Q SCH ×5 (04:06→21:47)
--- NOTE | 2020-09-27 09:30 | Progress Note ---
Assessment and Plan Assessment and plan: Acute left pontine CVA. Patient with dysarthria/dysphagia/right hemiparesis Hypertension. Diabetes mellitus type 2 Dyslipidemia 09/22/2020. Continue aspirin and lipids for secondary prevention. Neurology ordered CTA Head/Neck w/ & w/o contrast. PT/OT/ST/Swallow evaluation. Long- term risk-factor modification, including a strict diet/exercise regimen for secondary stroke prophylaxis. 09/23/2020. MRI reveals subacute left pontine infarction. CTA of the head and neck reveals occlusion of the distal vertebral artery and high-grade stenosis of the right V4 vertebral artery segment. Multifocal atherosclerotic narrowing with high-grade stenosis seen within the basilar artery and posterior cerebral arteries. Carotid ultrasound is negative for stenosis. Echocardiogram reveals EF of 55 to 60% with mild diastolic dysfunction. No evidence of PFO. Continue aspirin and Lipitor. Neurology following. We have allow for permissive hypertension but will now lower blood pressure. DC Norvasc and start Procardia XL 60 mg twice daily 09/24/2020. Patient complained of palpitations yesterday briefly around 2 PM. Patient has had no new episodes. Consider discontinuing as needed hydralazine if patient has possible side effects of reflex tachycardia. Continue current blood pressure medications. BP stable systolically in the 150s. Await placement in acute rehab per physical therapy recommendations. Will discuss with case management. 09/25/2020. No new issues overnight. Blood pressure remains relatively stable. Consider increasing Procardia for normotension. Continue aspirin and Lipitor. Await placement for acute rehab facility. 09/26/2020. Blood pressure remains stable continue current dosing of Procardia. Continue aspirin and Lipitor. Await placement to acute rehab facility. 09/27/2020. Patient complains of bilateral lower extremity swelling left greater than right. Check Doppler ultrasound of lower extremities. Echo revealed normal EF. Continue antihypertensive medications. Await placement to acute rehab facility History Interval history: No new issues overnight Hospitalist Physical - Constitutional Vitals: Temp Pulse Resp BP Pulse Ox 97.6 F 63 18 133/62 96 09/27/20 07:19 09/27/20 07:19 09/27/20 07:19 09/27/20 07:19 09/27/20 07:19 General appearance: Present: no acute distress, well-nourished - EENT Eyes: Present: PERRL, EOM intact ENT: hearing intact, clear oral mucosa, dentition normal - Neck Neck: Present: supple, normal ROM - Respiratory Respiratory effort: normal Respiratory: bilateral: CTA - Cardiovascular Rhythm: regular Heart Sounds: Present: S1 & S2. Absent: gallop, rub - Extremities Extremities: no ischemia, No edema, Full ROM - Abdominal General gastrointestinal: soft, non-tender, non-distended, normal bowel sounds - Integumentary Integumentary: Present: clear, warm, dry - Neurologic Neurologic: CNII-XII intact, moves all extremities HEART Score - HEART Score Risk factors: 1-2 risk factors Troponin: Troponin T < 0.010 ng/mL (0.00-0.029) 09/21/20 15:11 Troponin: < normal limit - Critical Actions Critical Actions: 0-3 pts:0.9-1.7%risk of adverse cardiac event.Candidate for discharge Results - Labs CBC & Chem 7: 09/22/20 04:57 09/22/20 04:57 Labs: Laboratory Last Values WBC 5.8 K/mm3 (4.5-11.0) 09/22/20 04:57 RBC 4.77 M/mm3 (3.65-5.03) 09/22/20 04:57 Hgb 15.0 gm/dl (11.8-15.2) 09/22/20 04:57 Hct 44.2 % (35.5-45.6) 09/22/20 04:57 MCV 93 fl (84-94) 09/22/20 04:57 MCH 31 pg (28-32) 09/22/20 04:57 MCHC 34 % (32-34) 09/22/20 04:57 RDW 15.2 % (13.2-15.2) 09/22/20 04:57 Plt Count 183 K/mm3 (140-440) 09/22/20 04:57 Lymph % (Auto) 32.0 % (13.4-35.0) 09/22/20 04:57 [place] % (Auto) 10.8 % (0.0-7.3) H 09/22/20 04:57 Eos % (Auto) 2.3 % (0.0-4.3) 09/22/20 04:57 Baso % (Auto) 0.5 % (0.0-1.8) 09/22/20 04:57 Lymph # (Auto) 1.9 K/mm3 (1.2-5.4) 09/22/20 04:57 [place] # (Auto) 0.6 K/mm3 (0.0-0.8) 09/22/20 04:57 Eos # (Auto) 0.1 K/mm3 (0.0-0.4) 09/22/20 04:57 Baso # (Auto) 0.0 K/mm3 (0.0-0.1) 09/22/20 04:57 Seg Neutrophils % 54.4 % (40.0-70.0) 09/22/20 04:57 Seg Neutrophils # 3.2 K/mm3 (1.8-7.7) 09/22/20 04:57 PT 12.2 Sec. (12.2-14.9) 09/21/20 15:11 INR 0.91 (0.87-1.13) 09/21/20 15:11 APTT 27.6 Sec. (24.2-36.6) 09/21/20 15:11 Sodium 133 mmol/L (137-145) L 09/22/20 04:57 Potassium 3.9 mmol/L (3.6-5.0) 09/22/20 04:57 Chloride 96.5 mmol/L (98-107) L 09/22/20 04:57 Carbon Dioxide 28 mmol/L (22-30) 09/22/20 04:57 Anion Gap 12 mmol/L 09/22/20 04:57 BUN 19 mg/dL (9-20) 09/22/20 04:57 Creatinine 1.9 mg/dL (0.8-1.3) H D 09/22/20 04:57 Estimated GFR 43 ml/min 09/22/20 04:57 BUN/Creatinine Ratio 10 % 09/22/20 04:57 Glucose 86 mg/dL (75-100) 09/22/20 04:57 POC Glucose 125 mg/dL (70-105) H 09/27/20 07:24 Hemoglobin A1c 7.2 % (4-6) H 09/22/20 04:57 Calcium 9.1 mg/dL (8.4-10.2) 09/22/20 04:57 Magnesium 1.90 mg/dL (1.7-2.3) 09/21/20 15:11 Total Bilirubin 0.30 mg/dL (0.1-1.2) 09/22/20 04:57 AST 21 units/L (5-40) 09/22/20 04:57 ALT 14 units/L (7-56) 09/22/20 04:57 Alkaline Phosphatase 67 units/L (35-129) 09/22/20 04:57 Total Creatine Kinase 139 units/L (55-170) 09/21/20 15:11 Troponin T < 0.010 ng/mL (0.00-0.029) 09/21/20 15:11 Total Protein 6.6 g/dL (6.3-8.2) 09/22/20 04:57 Albumin 3.7 g/dL (3.9-5) L 09/22/20 04:57 Albumin/Globulin Ratio 1.3 % 09/22/20 04:57 Triglycerides 502 mg/dL (2-149) H 09/22/20 04:57 Cholesterol 225 mg/dL (50-199) H 09/22/20 04:57 LDL Cholesterol Direct TNR 09/22/20 04:57 HDL Cholesterol 36 mg/dL (40-59) L 09/22/20 04:57 Cholesterol/HDL Ratio 6.25 % 09/22/20 04:57 Coronavirus (PCR) Negative (Negative) 09/22/20 10:00 Mart/IV: Voiding Method Toilet Active Medications - Current Medications Current Medications: Generic Name Dose Route Start Last Admin Trade Name Freq PRN Reason Stop Dose Admin Acetaminophen 650 mg 09/21/20 20:33 09/22/20 02:58 Acetaminophen 325 Mg Tab PO 650 mg Q4H PRN Administration Pain MILD(1-3)/Fever >100.5/MELO Aspirin 325 mg 09/22/20 10:00 09/26/20 09:01 Aspirin 325 Mg Tab PO 325 mg QDAY MARK Administration Atorvastatin Calcium 40 mg 09/21/20 22:00 09/26/20 21:44 Atorvastatin 40 Mg Tab PO 40 mg QHS MARK Administration Carvedilol 12.5 mg 09/21/20 22:00 09/26/20 21:44 Carvedilol 12.5 Mg Tab PO 12.5 mg BID MARK Administration Clopidogrel Bisulfate 75 mg 09/21/20 21:00 09/26/20 09:00 Clopidogrel 75 Mg Tab PO 75 mg QDAY MARK Administration Famotidine 20 mg 09/23/20 10:00 09/26/20 09:00 Famotidine 20 Mg Tab PO 20 mg DAILY MARK Administration Heparin Sodium (Porcine) 5,000 unit 09/21/20 22:00 09/26/20 21:44 Heparin 5,000 Unit/1 Ml Vial SUB-Q 5,000 unit Q12HR MARK Administration Hydralazine HCl 10 mg 09/21/20 20:50 09/23/20 11:48 Hydralazine 20 Mg/1 Ml Inj IV 10 mg Q3H PRN Administration Blood Pressure Hydromorphone HCl 0.5 mg 09/21/20 20:33 Hydromorphone 1 Mg/1 Ml Inj IV Q3H PRN Pain , Severe (7-10) Ibuprofen 600 mg 09/21/20 20:33 Ibuprofen 600 Mg Tab PO Q6H PRN Pain, Mild (1-3) Insulin Human Lispro 0 unit 09/21/20 22:00 09/27/20 04:06 Insulin Lispro 100 Unit/Ml SUB-Q Not Given ACHS [facility] Protocol Morphine Sulfate 2 mg 09/21/20 20:33 Morphine 2 Mg/1 Ml Inj IV Q4H PRN Pain, Moderate (4-6) Nifedipine 60 mg 09/23/20 12:00 09/26/20 21:43 Nifedipine Xl 60 Mg Tab PO 60 mg Q12HR MARK Administration Ondansetron HCl 4 mg 09/21/20 20:33 Ondansetron 4 Mg/2 Ml Inj IV Q8H PRN Nausea And Vomiting Sodium Chloride 10 ml 09/21/20 22:00 09/26/20 21:43 Sodium Chloride 0.9% 10 Ml Flush Syringe IV 10 ml BID MARK Administration Sodium Chloride 10 ml 09/21/20 20:33 Sodium Chloride 0.9% 10 Ml Flush Syringe IV PRN PRN LINE FLUSH Valsartan 160 mg 09/21/20 21:00 09/26/20 21:43 Valsartan 160mg Tab PO 160 mg Q12H MARK Administration
[2020-09-27] MEDS: FAMOTIDINE 20 MG TAB PO SCH (09:46)
[2020-09-27] MEDS: CLOPIDOGREL 75 MG TAB PO SCH (09:46)
[2020-09-27] MEDS: ASPIRIN 325 MG TAB PO SCH (09:46)
[2020-09-27] MEDS: NIFEdipine XL 60 MG TAB PO SCH ×2 (09:46→21:16)
[2020-09-27] MEDS: carvediloL 12.5 MG TAB PO SCH ×2 (09:46→21:15)
[2020-09-27] MEDS: VALSARTAN 160MG TAB PO SCH ×2 (09:49→21:15)
[2020-09-27] MEDS: HEPARIN 5,000 UNIT/1 ML VIAL SUB-Q SCH ×2 (09:53→21:16)
--- NOTE | 2020-09-27 17:56 | Vascular Lab Report ---
DUPLEX DOPPLER LOWER EXTREMITY VEINS, BILATERAL INDICATION / CLINICAL INFORMATION: LE swelling. TECHNIQUE: Duplex doppler imaging was performed through the veins of both lower extremities using venous iqana andrew and other maneuvers. COMPARISON: None available. FINDINGS: RIGHT COMMON FEMORAL VEIN: Negative. RIGHT FEMORAL VEIN: Negative. RIGHT POPLITEAL VEIN: Negative. RIGHT CALF VEINS: Negative. LEFT COMMON FEMORAL VEIN: Negative. LEFT FEMORAL VEIN: Negative. LEFT POPLITEAL VEIN: Negative. LEFT CALF VEINS: Negative. ADDITIONAL FINDINGS: None. IMPRESSION: 1. No sonographic evidence for DVT in either lower extremity. Signer Name: Kg Stewart MD Signed: 09/27/2020 5:51 PM Workstation Name: [id number]
[2020-09-28] MEDS: INSULIN LISPRO 100 UNIT/ML SUB-Q SCH ×2 (08:33→12:27)
[2020-09-28] MEDS: HEPARIN 5,000 UNIT/1 ML VIAL SUB-Q SCH (09:23)
[2020-09-28] MEDS: CLOPIDOGREL 75 MG TAB PO SCH (09:23)
[2020-09-28] MEDS: carvediloL 12.5 MG TAB PO SCH (09:23)
[2020-09-28] MEDS: ASPIRIN 325 MG TAB PO SCH (09:24)
[2020-09-28] MEDS: hydrALAZINE 25 MG TAB PO SCH ×2 (09:25→13:26)
[2020-09-28] MEDS: FAMOTIDINE 20 MG TAB PO SCH (09:25)
[2020-09-28] MEDS: NIFEdipine XL 60 MG TAB PO SCH (09:26)
--- NOTE | 2020-09-28 10:32 | Discharge Summary ---
Providers - Providers Date of Admission: 09/21/20 19:25 Date of discharge: 09/28/20 Attending physician: ROSA CHINO 09/21/20 20:33 Consult to Physician [CONS] Routine Comment: Consulting Provider: CLEO CASTANEDA Physician Instructions: Reason For Exam: Acute CVA 09/21/20 20:39 Occupational Therapy Evaluate and Treat [CONS] Routine Comment: Reason For Exam: Neuro deficits Physical Therapy Evaluation and Treat [CONS] Routine Comment: Reason For Exam: Neuro deficits Primary care physician: MOLD SWABBER Hospitalization Condition: Serious Hospital course: 65-year-old -Indian male with history of hypertension and prediabetes and stopped taking medicines for the last 8 months because his blood pressure normalized. Does not have a PCP. Patient comes in for weakness of the right upper extremity and right lower extremity for the last 3 days since Sunday. Able to walk but the right lower extremity gives away sometimes. Able to raise his right arm but not normal. No chest pain. No nicotine use or alcohol use. No fever or chills. No exposure to coronavirus. No exacerbating or relieving factors. Very noncompliant and does not have a PCP. Hospital course 09/22/2020. Continue aspirin and lipids for secondary prevention. Neurology ordered CTA Head/Neck w/ & w/o contrast. PT/OT/ST/Swallow evaluation. Long- term risk-factor modification, including a strict diet/exercise regimen for secondary stroke prophylaxis. 09/23/2020. MRI reveals subacute left pontine infarction. CTA of the head and neck reveals occlusion of the distal vertebral artery and high-grade stenosis of the right V4 vertebral artery segment. Multifocal atherosclerotic narrowing with high-grade stenosis seen within the basilar artery and posterior cerebral arteries. Carotid ultrasound is negative for stenosis. Echocardiogram reveals EF of 55 to 60% with mild diastolic dysfunction. No evidence of PFO. Continue aspirin and Lipitor. Neurology following. We have allow for permissive hypertension but will now lower blood pressure. DC Norvas and start Procardia XL 60 mg twice daily 09/24/2020. Patient complained of palpitations yesterday briefly around 2 PM. Patient has had no new episodes. Consider discontinuing as needed hydralazine if patient has possible side effects of reflex tachycardia. Continue current blood pressure medications. BP stable systolically in the 150s. Await placement in acute rehab per physical therapy recommendations. Will discuss with case management. 09/25/2020. No new issues overnight. Blood pressure remains relatively stable. Consider increasing Procardia for normotension. Continue aspirin and Lipitor. Await placement for acute rehab facility. 09/26/2020. Blood pressure remains stable continue current dosing of Procardia. Continue aspirin and Lipitor. Await placement to acute rehab facility. 09/27/2020. Patient complains of bilateral lower extremity swelling left greater than right. Check Doppler ultrasound of lower extremities. Echo revealed normal EF. Continue antihypertensive medications. Await placement to acute rehab facility 09/28/2020. Ultrasound lower extremity negative for DVT. He will continue to elevated the leg. He mentions he did not have leg swelling prior to admission. I suspect this is a side effect of his CCB. I will switch to a different medication. He will be discharged on low-dose Metformin for diabetes mellitus. He will need to follow up with a PCP and neurologist in the office. He has been advised to measure his blood pressures daily. He agrees with plan. Disposition: DC/TX-[id number] INPT REHAB FACILITY Final Discharge Diagnosis (Prints w/discharge instructions): Acute CVA Time spent for discharge: 40 minutes - Discharge Diagnoses (1) Acute CVA (cerebrovascular accident) Status: Acute (2) Hypertensive urgency Status: Acute (3) T2DM (type 2 diabetes mellitus) Status: Chronic Qualifiers: Diabetes mellitus intermediate insulin use: unspecified braid maker insulin use status Core Measure Documentation - Palliative Care Palliative Care/ Comfort Measures: Not Applicable - Core Measures Any of the following diagnoses?: stroke - Stroke Discharge Requirements Statin for LDL = or >70 mg/dl on DC: Yes Anticoag for atrial fib/atrial flutter: No Reason for no anticoag for AF/F on DC: Not Indicated Antithrombotic for ischemic stroke: No Reason for no antithrombotic on DC: Not Indicated Exam - Constitutional Vitals: Temp Pulse Resp BP Pulse Ox 98.3 F 64 18 154/74 96 09/28/20 04:23 09/28/20 09:25 09/28/20 07:27 09/28/20 09:25 09/28/20 04:23 General appearance: Present: no acute distress, well-nourished - EENT Eyes: Present: PERRL ENT: hearing intact, clear oral mucosa - Neck Neck: Present: supple, normal ROM - Respiratory Respiratory effort: normal Respiratory: bilateral: CTA - Cardiovascular Heart Sounds: Present: S1 & S2. Absent: rub, click - Extremities Extremities: pulses symmetrical, No edema Peripheral Pulses: within normal limits - Abdominal General gastrointestinal: Present: soft, non-tender, non-distended, normal bowel sounds Male genitourinary: Present: normal - Integumentary Integumentary: Present: clear, warm, dry - Musculoskeletal Musculoskeletal: gait normal, strength equal bilaterally - Psychiatric Psychiatric: appropriate mood/affect, intact judgment & insight - Neurologic Neurologic: CNII-XII intact, moves all extremities Plan Diet: low fat, low cholesterol, low salt, diabetic Additional Instructions: Continue aspirin and Plavix. Continue statins. Neurology follow-up in 2 weeks is recommended. Continue Metformin 500 mg twice daily. Follow-up with PCP in 1 - 2 weeks Follow up with: PRIMARY CAREMD [Primary Care Provider] - 7 Days ROSALIND RHODES MD [Referring] - 7 Days Prescriptions: AtorvaSTATin [Lipitor] 40 mg PO QHS #30 tablet hydrALAZINE [Apresoline TAB] 50 mg PO Q8HR #180 tablet Aspirin 325 mg PO QDAY #60 tablet cloNIDine [Catapres] 0.1 mg PO BID #60 tablet carvediloL [Coreg] 12.5 mg PO BID #60 tablet Valsartan [Diovan] 160 mg PO Q12H #60 tablet metFORMIN [Glucophage] 500 mg PO BID #60 tablet Clopidogrel [Plavix] 75 mg PO QDAY #30 tablet
[2020-09-28] MEDS: VALSARTAN 160MG TAB PO SCH (12:10)
[2020-09-28 13:30] VITALS: BP 160/75
== END 2020-09-28 16:20 | disposition home or self-care (01) | DRG 65 ==
LOC: ED 13:05 → 4A 19:25 → OBSVTOIN 19:25 → 4A 21:15
PROVIDERS: ADMIT Internal Medicine; ATTEND Internal Medicine
DX: I63.9 Cerebral infarction, unspecified (principal); G81.91 Hemiplegia, unspecified affecting right dominant side; Z20.822 Contact with and (suspected) exposure to COVID-19; D75.1 Secondary polycythemia; I16.0 Hypertensive urgency; E11.9 Type 2 diabetes mellitus without complications; E78.5 Hyperlipidemia, unspecified; R26.9 Unspecified abnormalities of gait and mobility; R29.705 NIHSS score 5; Z88.8 Allergy status to other drugs, medicaments and biological substances; Z79.899 Other long term (current) drug therapy; Z79.891 Long term (current) use of opiate analgesic; Z79.01 Long term (current) use of anticoagulants; Z79.4 Long term (current) use of insulin
CPT/HCPCS: 36415; 70450; 70496; 70498; 70551; 80053; 80061; 82550; 82962; 83036; 83735; 84484; 85025; 85610; 85730; 93005; 93306; 93880; 93970; 99291; G0378; A9270-GY; J0360; J1644; J1815; Q9967; U0003

== ENCOUNTER 2020-11-04 16:07 | Emergency (ER) | payer OTHER ==
[2020-11-04] MEDS ORDERED: cloNIDine 0.2 MG TAB PO ONE (17:15)
--- NOTE | 2020-11-04 17:44 | Event Note ---
ED Screening Note Date of service: 11/04/20 Time: 17:18 ED Screening Note: 65-year-old male presents to the emergency room for needing a refill on his medication. Patient reports that his blood pressure has been elevated. Patient's blood pressure in triage is 270/136. Patient is currently on 4 blood pressure medication. Denies any headache shortness of breath or chest pain or lower leg edema. This initial assessment/diagnostic orders/clinical plan/treatment(s) is/are subject to change based on patients health status, clinical progression and re- assessment by fellow clinical providers in the ED. Further treatment and workup at subsequent clinical providers discretion. Patient/guardian urged not to elope from the ED as their condition may be serious if not clinically assessed and managed. Initial orders include: Patient will be given a clonidine 0.2 mg.
--- NOTE | 2020-11-04 19:37 | Emergency Department Report ---
ED General Adult HPI - General Chief complaint: Recheck/Abnormal Lab/Rx Stated complaint: RX REFILL Time Seen by Provider: 11/04/20 19:31 Source: patient Mode of arrival: Ambulatory Limitations: No Limitations - History of Present Illness Initial comments: Pt is a 65-year-old male presents to the emergency room for needing a refill on his medication. Patient reports that his blood pressure has been elevated. Patient's blood pressure in triage is 270/136. Patient is currently on 4 blood pressure medication. - Related Data Previous Rx's Medication Instructions Recorded Last Taken Type Aspirin 325 mg PO QDAY #60 tablet 11/04/20 Unknown Rx AtorvaSTATin [Lipitor] 40 mg PO QHS #30 tablet 11/04/20 Unknown Rx Clopidogrel [Plavix] 75 mg PO QDAY #30 tablet 11/04/20 Unknown Rx Valsartan [Diovan] 160 mg PO Q12H #60 tablet 11/04/20 Unknown Rx carvediloL [Coreg] 12.5 mg PO BID #60 tablet 11/04/20 Unknown Rx cloNIDine [Catapres] 0.1 mg PO BID #60 tablet 11/04/20 Unknown Rx hydrALAZINE [Apresoline TAB] 50 mg PO Q8HR #180 tablet 11/04/20 Unknown Rx metFORMIN [Glucophage] 500 mg PO BID #60 tablet 11/04/20 Unknown Rx Allergies Allergy/AdvReac Type Severity Reaction Status Date / Time chloroquine Allergy Hives Verified 09/21/20 17:32 ED Review of Systems ROS: Stated complaint: RX REFILL Other details as noted in HPI Constitutional: denies: chills, fever Eyes: denies: eye pain, eye discharge, vision change ENT: denies: ear pain, throat pain Respiratory: denies: cough, shortness of breath, wheezing Cardiovascular: denies: chest pain, palpitations Endocrine: no symptoms reported Gastrointestinal: denies: abdominal pain, nausea, diarrhea Genitourinary: denies: urgency, dysuria Musculoskeletal: denies: back pain, joint swelling, arthralgia Skin: denies: rash, lesions Neurological: denies: headache, weakness, paresthesias Psychiatric: denies: anxiety, depression Hematological/Lymphatic: denies: easy bleeding, easy bruising ED Past Medical Hx - Past Medical History Previous Medical History?: Yes Hx Hypertension: Yes Hx Diabetes: Yes - Surgical History Past Surgical History?: No - Social History Smoking Status: Never Smoker Substance Use Type: None - Medications Home Medications: Home Medications Medication Instructions Recorded Confirmed Last Taken Type Aspirin 325 mg PO QDAY #60 tablet 11/04/20 Unknown Rx AtorvaSTATin [Lipitor] 40 mg PO QHS #30 tablet 11/04/20 Unknown Rx Clopidogrel [Plavix] 75 mg PO QDAY #30 tablet 11/04/20 Unknown Rx Valsartan [Diovan] 160 mg PO Q12H #60 tablet 11/04/20 Unknown Rx carvediloL [Coreg] 12.5 mg PO BID #60 tablet 11/04/20 Unknown Rx cloNIDine [Catapres] 0.1 mg PO BID #60 tablet 11/04/20 Unknown Rx hydrALAZINE [Apresoline TAB] 50 mg PO Q8HR #180 tablet 11/04/20 Unknown Rx metFORMIN [Glucophage] 500 mg PO BID #60 tablet 11/04/20 Unknown Rx ED Physical Exam - General Limitations: No Limitations General appearance: alert, in no apparent distress - Head Head exam: Present: atraumatic, normocephalic - Eye Eye exam: Present: normal appearance, PERRL, EOMI Pupils: Present: normal accommodation - ENT ENT exam: Present: mucous membranes moist - Neck Neck exam: Present: normal inspection, full ROM. Absent: tenderness, lymphadenopathy, thyromegaly - Respiratory Respiratory exam: Present: normal lung sounds bilaterally. Absent: respiratory distress, wheezes - Cardiovascular Cardiovascular Exam: Present: regular rate, normal rhythm, normal heart sounds. Absent: systolic murmur, diastolic murmur, rubs, gallop - GI/Abdominal GI/Abdominal exam: Present: soft, normal bowel sounds. Absent: distended, tenderness, bruit, hernia - Rectal Rectal exam: Present: deferred - Extremities Exam Extremities exam: Present: normal inspection - Back Exam Back exam: Present: normal inspection, full ROM. Absent: tenderness - Neurological Exam Neurological exam: Present: alert, oriented X3, CN II-XII intact, normal gait, reflexes normal. Absent: motor sensory deficit - Expanded Neurological Exam Expanded Patient oriented to: Present: person, place, time Speech: Present: fluid speech Motor strength exam: RUE: 5, LUE: 5, RLE: 5, LLE: 5 Best Eye Response ([place]): (4) open spontaneously Best Motor Response ([place]): (6) obeys commands Best Verbal Response ([place]): (5) oriented [place] Total: 15 - Psychiatric Psychiatric exam: Present: normal affect, normal mood - Skin Skin exam: Present: warm, dry, intact, normal color. Absent: rash ED Course Vital Signs 11/04/20 16:44 Temperature 98.5 F Pulse Rate 89 Respiratory 15 Rate Blood Pressure 270/136 O2 Sat by Pulse 99 Oximetry ED Medical Decision Making - Medical Decision Making Pt is a 65-year-old male presents to the emergency room for needing a refill on his medication. Patient reports that his blood pressure has been elevated. Patient's blood pressure in triage is 270/136. Patient is currently on 4 blood pressure medication. Denies any headache shortness of breath or chest pain or lower leg edema. There is no dizziness , no lightheadedness , no n/v, no copy preparer, no back pain , pt is a/o x 3 , ambulatory with steady gait, nad. Plan refill rx. pt will follow up with primary care doctor in 2-3 days. pt verbalized agreement and understanding of same. Pt dc'd in stable condition at this time. Critical care attestation.: If time is entered above; I have spent that time in minutes in the direct care of this critically ill patient, excluding procedure time. ED Disposition Clinical Impression: Medication refill HTN (hypertension) Qualifiers: Hypertension type: essential hypertension Qualified Code(s): I10 - Essential (primary) hypertension Disposition: DC-01 TO HOME OR SELFCARE Is pt being admited?: No Does the pt Need Aspirin: No Condition: Stable Instructions: Hypertension (ED), Hypertension, Adult, [id number] Additional Instructions: Take all medications as prescribed, ADA Diet, return to emergency if symptoms worsen. Prescriptions: AtorvaSTATin [Lipitor] 40 mg PO QHS #30 tablet hydrALAZINE [Apresoline TAB] 50 mg PO Q8HR #180 tablet Aspirin 325 mg PO QDAY #60 tablet cloNIDine [Catapres] 0.1 mg PO BID #60 tablet carvediloL [Coreg] 12.5 mg PO BID #60 tablet Valsartan [Diovan] 160 mg PO Q12H #60 tablet metFORMIN [Glucophage] 500 mg PO BID #60 tablet Clopidogrel [Plavix] 75 mg PO QDAY #30 tablet Referrals: SHAHBAZ GONZALEZ MD [Staff Physician] - 3-5 Days Forms: Work/School Release Form(ED) Time of Disposition: 19:42
[2020-11-04 19:43] VITALS: BP 167/93
--- NOTE | 2020-11-04 19:59 | XRay Report ---
CHEST 2 VIEWS INDICATION / CLINICAL INFORMATION: Elevated BP. COMPARISON: None available. FINDINGS: SUPPORT DEVICES: None. HEART / MEDIASTINUM: No significant abnormality. LUNGS / PLEURA: No significant pulmonary or pleural abnormality. No pneumothorax. ADDITIONAL FINDINGS: No significant additional findings. IMPRESSION: 1. No acute findings. Signer Name: Nahid Martines MD Signed: 11/04/2020 7:54 PM Workstation Name: [id number]
== END 2020-11-04 20:10 | disposition home or self-care (01) ==
LOC: ED 16:07
DX: I10 Essential (primary) hypertension (principal); E11.9 Type 2 diabetes mellitus without complications; Z76.0 Encounter for issue of repeat prescription; Z88.8 Allergy status to other drugs, medicaments and biological substances; Z79.899 Other long term (current) drug therapy
CPT/HCPCS: 71046; 99283

== ENCOUNTER 2021-02-11 17:42 | Inpatient (IN) | payer OTHER ==
--- NOTE | 2021-02-11 18:17 | Emergency Department Report ---
HPI - General Chief Complaint: Neuro Symptoms/Deficit Time Seen by Provider: 02/11/21 18:03 - [facility] HPI: Room 17 The patient is a 65-year-old male present with a chief complaint of double vision and feeling off balance. The patient states last night at 19: 00 he developed double vision. Patient states she feels off balance and feels as though he is drifting to his right. Patient denies paresthesia or weakness in his extremities. Patient admits to having a CVA approximate 4 months ago but states his only residual deficit is bilateral upper extremity pain. ED Past Medical Hx - Past Medical History Previous Medical History?: Yes Hx Hypertension: Yes Hx CVA: Yes Hx Diabetes: Yes - Surgical History Past Surgical History?: No - Family History Family history: no significant - Social History Smoking Status: Never Smoker Substance Use Type: None - Medications Home Medications: Home Medications Medication Instructions Recorded Confirmed Last Taken Type Aspirin 325 mg PO QDAY #60 tablet 11/04/20 Unknown Rx AtorvaSTATin [Lipitor] 40 mg PO QHS #30 tablet 11/04/20 Unknown Rx Clopidogrel [Plavix] 75 mg PO QDAY #30 tablet 11/04/20 Unknown Rx Valsartan [Diovan] 160 mg PO Q12H #60 tablet 11/04/20 Unknown Rx carvediloL [Coreg] 12.5 mg PO BID #60 tablet 11/04/20 Unknown Rx cloNIDine [Catapres] 0.1 mg PO BID #60 tablet 11/04/20 Unknown Rx hydrALAZINE [Apresoline TAB] 50 mg PO Q8HR #180 tablet 11/04/20 Unknown Rx metFORMIN [Glucophage] 500 mg PO BID #60 tablet 11/04/20 Unknown Rx ED Review of Systems ROS: Stated complaint: HAVING DB VISION Other details as noted in HPI Constitutional: no symptoms reported Eyes: vision change Respiratory: no symptoms reported Cardiovascular: denies: chest pain Endocrine: no symptoms reported Gastrointestinal: denies: abdominal pain Genitourinary: denies: dysuria Musculoskeletal: denies: back pain Neurological: denies: headache Physical Exam - Physical Exam Physical Exam: GENERAL: The patient is well-developed well-nourished male sitting in wheelchair not appearing to be in acute distress. [] HEENT: Normocephalic. Atraumatic. Extraocular motions are intact except OS does not abduct past midline (HEIDI). Patient has moist mucous membranes. NECK: Supple. Trachea midline CHEST/LUNGS: Clear to auscultation. There is no respiratory distress noted. HEART/CARDIOVASCULAR: Regular. There is no tachycardia. There is no gallop rub or murmur. ABDOMEN: Abdomen is soft, nontender. Patient has normal bowel sounds. There is no abdominal distention. SKIN: There is no rash. There is no edema. There is no diaphoresis. NEURO: The patient is awake, alert, and oriented. The patient is cooperative. Cranial nerves II through XII grossly intact with exception of OS not abducting past midline (HEIDI). Moves all extremities well. The patient has normal speech. GCS 15. NIHSS=2 MUSCULOSKELETAL: There is no evidence of acute injury. ED Medical Decision Making - Lab Data Result diagrams: 02/11/21 18:38 02/11/21 19:57 Laboratory Tests 02/11/21 02/11/21 02/11/21 18:03 18:38 18:38 WBC 4.6 RBC 4.40 Hgb 13.8 Hct 41.5 MCV 94 MCH 31 MCHC 33 RDW 14.9 Plt Count 147 Lymph % (Auto) 37.7 H Kane % (Auto) 9.8 H Eos % (Auto) 6.3 H Baso % (Auto) 0.2 Lymph # (Auto) 1.7 Kane # (Auto) 0.4 Eos # (Auto) 0.3 Baso # (Auto) 0.0 Seg Neutrophils % 46.0 Seg Neutrophils # 2.1 PT 13.1 INR 0.94 APTT 27.5 Thrombin Time 16.8 Sodium Potassium Chloride Carbon Dioxide Anion Gap BUN Creatinine Estimated GFR BUN/Creatinine Ratio Glucose POC Glucose 155 H Calcium Total Creatine Kinase CK-MB (CK-2) CK-MB (CK-2) Rel Index Troponin T 02/11/21 02/11/21 18:38 19:57 WBC RBC Hgb Hct MCV MCH MCHC RDW Plt Count Lymph % (Auto) Kane % (Auto) Eos % (Auto) Baso % (Auto) Lymph # (Auto) Kane # (Auto) Eos # (Auto) Baso # (Auto) Seg Neutrophils % Seg Neutrophils # PT INR APTT Thrombin Time Sodium 139 Potassium 3.5 L Chloride 103.3 Carbon Dioxide 25 Anion Gap 14 BUN 15 Creatinine 1.0 Estimated GFR > 60 BUN/Creatinine Ratio 15 Glucose 125 H POC Glucose Calcium 9.5 Total Creatine Kinase 173 H CK-MB (CK-2) 2.8 CK-MB (CK-2) Rel Index 1.6 Troponin T < 0.010 - EKG Data -: EKG Interpreted by Me EKG shows normal: sinus rhythm Rate: normal - EKG Data When compared to previous EKG there are: previous EKG unavailable Interpretation: nonspecific ST-T wave melba, LVH - Radiology Data Radiology results: report reviewed (CT head), image reviewed (CT head) [facility] [address] [place] [address] Cat Scan Report Signed Patient: AALIYAH PINZON MR #: [id number] : 1955 Acct:[id number] Age/Sex: 65 / M ADM Date: 02/11/21 Loc: ED Attending Dr: Ordering Physician: NOAH THOMPSON Date of Service: 02/11/21 Procedure(s): CT head/brain wo con Accession Number(s): [id number] cc: NOAH THOMPSON NONENHANCED CT SCAN OF THE HEAD: INDICATION / CLINICAL INFORMATION: 65 years Male; Stroke symptoms; left facial paralysis. TECHNIQUE: Routine CT head without contrast. All CT scans at this location are performed using CT dose reduction for ALARA by means of automated exposure control. COMPARISON: CT scan of the head from 09/04/2020 and MRI scan of the brain from 09/22/2020 FINDINGS: BRAIN / INTRACRANIAL CONTENTS: No intracerebral hemorrhage or stroke mimics No acute hemorrhage, mass effect, midline shift, hydrocephalus, or acute, large territorial infarct. Encephalomalacia in the right posterior putamen; unchanged; dilated perivascular spaces bilaterally in the inferior basal ganglia; periventricular and deep hemispheric white matter low- attenuation areas due to chronic small vessel disease; chronic changes in the left side of felipe chronic small vessel disease CRANIOCERVICAL JUNCTION: No significant abnormality. ORBITS: Lateral proptosis is; retrobulbar are spaces normal; no change SINUSES / MASTOIDS: Significant mucosal disease in the maxillary sinuses more on the right side; postsurgical changes in the nasal cavity on the right side; mucosal disease in the right anterior ethmoid air cell; mucosal disease in the left posterior sphenoid sinus; unchanged ADDITIONAL FINDINGS: None. IMPRESSION: No acute/subacute territorial infarction No intracerebral bleed; no stroke mimics Signer Name: Lonnie Mcgraw MD Signed: 02/11/2021 6:31 PM Workstation Name: [email or web address] Transcribed By: BS Dictated By: Lonnie Javed MD Electronically Authenticated By: Lonnie Javed MD Signed Date/Time: 02/11/211830 DD/ 25 TD/TT: Print Cancel - Differential Diagnosis CVA, HEIDI Critical care attestation.: If time is entered above; I have spent that time in minutes in the direct care of this critically ill patient, excluding procedure time. 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 Dove))
--- NOTE | 2021-02-11 18:30 | Consultation ---
History of Present Illness - Reason for Consult Consult date: 02/11/21 - History of Present Illness [facility]urology Consult Note # Demographics Consult Type: Acute Stroke Level 2 (4.5-24 hrs) Patient Location: Emergency Room First Name: Rupert Last Name: Camelia Date of : 1955 Age: 65 Gender: Male Time of Initial Page ( Time): 02/11/2021, 18:14 Time of Return Call ( Time): 02/11/2021, 18:16 # HPI History: 65yo man who had blurred vision since last night at around 7PM that was bilateral. He states that he has no focal weakness. He is also having problems with walking and drifting to the right side. He states that he had a stroke 4 months ago. Associated Symptoms: no dizziness double vision gait dyscoordination headache Quality: no numbness no slurred speech no tingling no weakness no word finding difficulty # Scores Time of exam and NIHSS (): 02/11/2021, 18:27 Level of Consciousness 1a: [0] = Alert; keenly responsive LOC Questions 1b: [0] = Answers both questions correctly LOC Commands 1c: [0] = Performs both tasks correctly Best Gaze 2: [0] = Normal Visual 3: [0] = No visual loss Facial Palsy 4: [0] = Normal symmetrical movements Motor Arm Left 5a: [0] = No drift Motor Arm Right 5b: [0] = No drift Motor Leg Left 6a: [0] = No drift Motor Leg Right 6b: [0] = No drift Limb Ataxia 7: [0] = Absent Sensory 8: [0] = Normal Best Language 9: [0] = No aphasia Dysarthria 10: [0] = Normal Extinction and Inattention 11: [0] = No abnormality NIHSS Total: 0 # PMH-FH-SH Past Medical History: Diabetes hypertension Social History: non-smoker occasional alcohol Medications: aspirin # Assessment Impression: Ischemic Stroke (Subacute) # Plan Thrombolytic/Intervention: NOT IV Thrombolysis or IA Intervention candidate Thrombolytic Exclusion: > 4.5 hours Intraarterial Exclusion: clinically consistent with small vessel disease Target Blood Pressure: SBP < 220 Labs: ESR lipid panel Imaging: (urgency: routine): CT Angiogram Head and CT Angiogram Neck MRI Brain without contrast Diagnostic Test: echo without bubble study Therapy/Evaluation: NPO until swallow evaluation PT/OT evaluation speech/swallow consultation Medication: aspirin 81 mg PLUS clopidogrel (Plavix) 75 mg for 21 days, then monotherapy therafter DVT Prophylaxis: SCD chemical DVT prophylaxis Other: permissive hypertension telemetry monitoring I have discussed my recommendations with the referring provider Disposition: admit Medications and Allergies Allergies Allergy/AdvReac Type Severity Reaction Status Date / Time chloroquine Allergy Hives Verified 09/21/20 17:32 Home Medications Medication Instructions Recorded Confirmed Last Taken Type Aspirin 325 mg PO QDAY #60 tablet 11/04/20 Unknown Rx AtorvaSTATin [Lipitor] 40 mg PO QHS #30 tablet 11/04/20 Unknown Rx Clopidogrel [Plavix] 75 mg PO QDAY #30 tablet 11/04/20 Unknown Rx Valsartan [Diovan] 160 mg PO Q12H #60 tablet 11/04/20 Unknown Rx carvediloL [Coreg] 12.5 mg PO BID #60 tablet 11/04/20 Unknown Rx cloNIDine [Catapres] 0.1 mg PO BID #60 tablet 11/04/20 Unknown Rx hydrALAZINE [Apresoline TAB] 50 mg PO Q8HR #180 tablet 11/04/20 Unknown Rx metFORMIN [Glucophage] 500 mg PO BID #60 tablet 11/04/20 Unknown Rx Exam - Constitutional Vitals: Temp Pulse Resp BP Pulse Ox 97.8 F 90 18 195/90 100 02/11/21 18:11 02/11/21 18:11 02/11/21 18:11 02/11/21 18:11 02/11/21 18:11 Results - Labs Labs: Abnormal lab results 02/11/21 Range/Units 18:03 POC Glucose 155 H (70-105) mg/dL
--- NOTE | 2021-02-11 18:36 | Cat Scan Report ---
NONENHANCED CT SCAN OF THE HEAD: INDICATION / CLINICAL INFORMATION: 65 years Male; Stroke symptoms; left facial paralysis. TECHNIQUE: Routine CT head without contrast. All CT scans at this location are performed using CT dos e reduction for ALARA by means of automated exposure control. COMPARISON: CT scan of the head from 09/04/2020 and MRI scan of the brain from 09/22/2020 FINDINGS: BRAIN / INTRACRANIAL CONTENTS: No intracerebral hemorrhage or stroke mimics No acute hemorrhage, mass effect, midline shift, hydrocephalus, or acute, large territorial infarct. Encephalomalacia in the right posterior putamen; unchanged; dilated perivascular spaces bilaterally in the inferior basal ganglia; periventricular and deep hemispheric white matter low-attenuation area s due to chronic small vessel disease; chronic changes in the left side of felipe chronic small vessel disease CRANIOCERVICAL JUNCTION: No significant abnormality. ORBITS: Lateral proptosis is; retrobulbar are spaces normal; no change SINUSES / MASTOIDS: Significant mucosal disease in the maxillary sinuses more on the right side; post surgical changes in the nasal cavity on the right side; mucosal disease in the right anterior ethmoid air cell; mucosal disease in the left posterior sphenoid sinus; unchanged ADDITIONAL FINDINGS: None. IMPRESSION: No acute/subacute territorial infarction No intracerebral bleed; no stroke mimics Signer Name: Lonnie Mcgraw MD Signed: 02/11/2021 6:31 PM Workstation Name: [id number]
[2021-02-11] MEDS ORDERED: CLOPIDOGREL 300 MG TAB PO ONE (18:45)
[2021-02-11] MEDS ORDERED: ASPIRIN 81 MG TAB CHEW PO ONE (18:45)
[2021-02-11 19:00] LABS: Hematocrit 41.5 % (35.5-45.6); Hemoglobin 13.8 gm/dl (11.8-15.2); Mean Corpuscular HGB Conc 33 % (32-34); Mean Corpuscular Volume 94 fl (84-94); Platelet Count 147 K/mm3 (140-440); Red Cell Distribution Width 14.9 % (13.2-15.2)
[2021-02-11 19:08] LABS: Lymphocytes % (Auto) 37.7 % (13.4-35.0); Monocytes % (Auto) 9.8 % (0.0-7.3)
[2021-02-11 19:09] LABS: Basophils % (Auto) 0.2 % (0.0-1.8); Eosinophils # (Auto) 0.3 K/mm3 (0.0-0.4); Eosinophils % (Auto) 6.3 % (0.0-4.3); INR 0.94 (0.87-1.13); Lymphocytes # (Auto) 1.7 K/mm3 (1.2-5.4); Monocytes # (Auto) 0.4 K/mm3 (0.0-0.8)
[2021-02-11 19:10] LABS: Partial Thromboplastin Time 27.5 Sec. (24.2-36.6); Thrombin Time 16.8 Sec. (15.1-19.6)
[2021-02-11 19:38] LABS: Creatine Kinase MB 2.8 ng/mL (0.0-4.0)
[2021-02-11 20:26] LABS: BUN/Creatinine Ratio 15; Blood Urea Nitrogen 15 mg/dL (9-20); Calcium 9.5 mg/dL (8.4-10.2); Hemolysis Index 8
[2021-02-11] MEDS ORDERED: MAGNESIUM HYDROXIDE (MOM) ORAL LIQD UDC PO PRN (22:28)
[2021-02-11] MEDS ORDERED: ACETAMINOPHEN 325 MG TAB PO PRN ×2 (22:28)
[2021-02-11] MEDS ORDERED: MORPHINE 2 MG/1 ML INJ IV PRN (22:28)
[2021-02-11] MEDS ORDERED: ONDANSETRON 4 MG/2 ML INJ IV PRN ×2 (22:28)
[2021-02-11] MEDS ORDERED: PROMETHAZINE 25 MG RECT SUPP PR PRN (22:28)
[2021-02-11] MEDS ORDERED: METOCLOPRAMIDE 10 MG TAB PO PRN (22:28)
[2021-02-11] MEDS ORDERED: MORPHINE 4 MG/1 ML INJ IV PRN (22:28)
[2021-02-11] MEDS ORDERED: DEXTROSE 50% IN WATER (25GM) 50 ML SYRINGE IV PRN (22:28)
--- NOTE | 2021-02-11 22:47 | History and Physical Report ---
History of Present Illness Date of examination: 02/11/21 Date of admission: 02/11/2021 Chief complaint: Double Vision History of present illness: [id number]-old -[place] male with known history of hypertension, diabetes mellitus and CVA in the past presents to the emergency room today with a complaint of double vision and feeling off balance. He has been ongoing at about 7 PM yesterday. He also feels off balance and he at times feels is drifting to the right side. Patient denies any headache, no diaphoresis, no fever or chills, no chest pain no shortness of breath. Patient has known history of CVA about 4 months ago and residual deficits according to him was that of pain in the hands bilaterally. Work-up in the emergency room today, CT of the head shows no acute/subacute territorial infarction, no intracranial bleed. Patient was evaluated by the Teleneurologist and recommendation is to work patient up for CVA. Aspirin and Plavix were recommended for 21 days. Past History Past Medical History: diabetes, hypertension, stroke Past Surgical History: No surgical history Social history: no significant social history Family history: no significant family history Medications and Allergies Allergies Allergy/AdvReac Type Severity Reaction Status Date / Time chloroquine Allergy Hives Verified 09/21/20 17:32 Home Medications Medication Instructions Recorded Confirmed Last Taken Type Aspirin 325 mg PO QDAY #60 tablet 11/04/20 Unknown Rx AtorvaSTATin [Lipitor] 40 mg PO QHS #30 tablet 11/04/20 Unknown Rx Clopidogrel [Plavix] 75 mg PO QDAY #30 tablet 11/04/20 Unknown Rx Valsartan [Diovan] 160 mg PO Q12H #60 tablet 11/04/20 Unknown Rx carvediloL [Coreg] 12.5 mg PO BID #60 tablet 11/04/20 Unknown Rx cloNIDine [Catapres] 0.1 mg PO BID #60 tablet 11/04/20 Unknown Rx hydrALAZINE [Apresoline TAB] 50 mg PO Q8HR #180 tablet 11/04/20 Unknown Rx metFORMIN [Glucophage] 500 mg PO BID #60 tablet 11/04/20 Unknown Rx Review of Systems Constitutional: no fever, no chills Eyes: bilateral: diplopia Ears, nose, mouth and throat: no nasal congestion, no sore throat Cardiovascular: no chest pain, no palpitations Respiratory: no cough, no shortness of breath Gastrointestinal: no abdominal pain, no nausea, no vomiting, no diarrhea Genitourinary Male: no dysuria, no hematuria, no flank pain, no nocturia Musculoskeletal: no neck pain, no low back pain Integumentary: no rash, no pruritis Neurological: no headaches, no confusion Psychiatric: no anxiety, no depression Endocrine: no polyphagia, no polydipsia, no polyuria, no nocturia Exam - Constitutional Vitals: Temp Pulse Resp BP Pulse Ox 97.8 F 86 17 190/89 98 02/11/21 18:11 02/11/21 18:38 02/11/21 18:59 02/11/21 18:38 02/11/21 18:59 General appearance: Present: no acute distress, well-nourished - EENT Eyes: Present: PERRL, EOM intact. Absent: scleral icterus ENT: hearing intact, clear oral mucosa, dentition normal - Neck Neck: Present: supple, normal ROM - Respiratory Respiratory effort: normal Respiratory: bilateral: CTA - Cardiovascular Rhythm: regular Heart Sounds: Present: S1 & S2. Absent: gallop, systolic murmur, diastolic murmur, rub, click - Extremities Extremities: no ischemia, pulses intact, pulses symmetrical, No edema, normal temperature, normal color, Full ROM Peripheral Pulses: within normal limits - Abdominal General gastrointestinal: Present: soft, non-tender, non-distended, normal bowel sounds. Absent: mass - Integumentary Integumentary: Present: clear, warm, dry. Absent: rash - Musculoskeletal Musculoskeletal: strength equal bilaterally - Psychiatric Psychiatric: appropriate mood/affect, intact judgment & insight, memory intact, cooperative - Neurologic Neurologic: CNII-XII intact, no focal deficits, moves all extremities HEART Score - HEART Score Troponin: Troponin T < 0.010 ng/mL (0.00-0.029) 02/11/21 18:38 Results - Labs CBC & Chem 7: 02/12/21 04:50 02/12/21 04:50 Labs: Abnormal lab results 02/11/21 02/11/21 02/11/21 Range/Units 18:03 18:38 18:38 Lymph % (Auto) 37.7 H (13.4-35.0) % [place] % (Auto) 9.8 H (0.0-7.3) % Eos % (Auto) 6.3 H (0.0-4.3) % Potassium (3.6-5.0) mmol/L Glucose (75-100) mg/dL POC Glucose 155 H (70-105) mg/dL Total Creatine Kinase 173 H (55-170) units/L 02/11/21 Range/Units 19:57 Lymph % (Auto) (13.4-35.0) % [place] % (Auto) (0.0-7.3) % Eos % (Auto) (0.0-4.3) % Potassium 3.5 L (3.6-5.0) mmol/L Glucose 125 H (75-100) mg/dL POC Glucose (70-105) mg/dL Total Creatine Kinase (55-170) units/L Assessment and Plan - Patient Problems (1) Internuclear ophthalmoplegia of left eye Current Visit: Yes Status: Acute Plan to address problem: Etiology unclear. Possibly secondary to CVA. There has been an improvement since arrival in the emergency room. Consult placed to neurology for evaluation. (2) CVA (cerebral vascular accident) Current Visit: Yes Status: Acute Qualifiers: CVA mechanism: unspecified Qualified Code(s): I63.9 - Cerebral infarction, unspecified Plan to address problem: We will commence patient on aspirin and Plavix as recommended by the neurologist. We will schedule patient for MRI of the brain, carotid Doppler and echocardiogram. (3) Hypertension Current Visit: Yes Status: Acute Plan to address problem: We will resume routine home medications and monitor vital signs closely. (4) Diabetes mellitus Current Visit: Yes Status: Acute Plan to address problem: Patient placed on sliding scale insulin. We will monitor her Accu-Cheks. (5) DVT prophylaxis Current Visit: No Status: Acute Plan to address problem: Patient placed on subcutaneous Lovenox. (6) Full code status Current Visit: Yes Status: Acute Plan to address problem: Patient is full code.
[2021-02-12 05:44] LABS: Basophils % (Auto) 0.2 % (0.0-1.8); Eosinophils # (Auto) 0.3 K/mm3 (0.0-0.4); Eosinophils % (Auto) 7.9 % (0.0-4.3); Hematocrit 40.5 % (35.5-45.6); Hemoglobin 13.8 gm/dl (11.8-15.2); Lymphocytes # (Auto) 1.3 K/mm3 (1.2-5.4); Lymphocytes % (Auto) 31.9 % (13.4-35.0); Mean Corpuscular HGB Conc 34 % (32-34); Mean Corpuscular Volume 93 fl (84-94); Monocytes # (Auto) 0.4 K/mm3 (0.0-0.8); Monocytes % (Auto) 10.2 % (0.0-7.3); Platelet Count 150 K/mm3 (140-440); Red Blood Count 4.35 M/mm3 (3.65-5.03); Red Cell Distribution Width 14.6 % (13.2-15.2)
[2021-02-12 05:58] LABS: INR 0.94 (0.87-1.13)
[2021-02-12 06:09] LABS: BUN/Creatinine Ratio 13; Blood Urea Nitrogen 13 mg/dL (9-20); Calcium 9.5 mg/dL (8.4-10.2); Chol/HDL Ratio 2.06 %; HDL Cholesterol 47 mg/dL (40-59); Hemolysis Index 6; LDL Cholesterol,Direct 45 mg/dL (50-130)
[2021-02-12] MEDS: VALSARTAN 160MG TAB PO SCH ×2 (06:15→21:45)
[2021-02-12] MEDS: hydrALAZINE 25 MG TAB PO SCH ×4 (06:15→21:45)
[2021-02-12] MEDS: HEPARIN 5,000 UNIT/1 ML VIAL SUB-Q SCH ×4 (06:15→21:45)
--- NOTE | 2021-02-12 07:34 | Consultation ---
History of Present Illness Consult date: 02/12/21 Reason for Consult: Diplopia and unsteady gait History of present illness: Double Vision History of present illness: [id number]-old -[place] male with known history of hypertension, diabetes mellitus and CVA in the past presents to the emergency room today with a complaint of double vision and feeling off balance symptoms are ongoing since last He also feels off balance and he at times feels is drifting to the right side. Patient denies any headache, no diaphoresis, no fever or chills, no chest pain no shortness of breath. Patient has known history of CVA about 4 months ago and residual deficits according to him was that of pain in the hands bilaterally. Work-up in the emergency room today, -CT of the head shows no acute/subacute territorial infarction, no intracranial bleed. Patient was evaluated by the Teleneurologist and recommendation is to work patient up for CVA. Aspirin and Plavix were recommended for 21 days. he was taking ASA and BP medication for the last 4 months according to him , not cholesterol medicine No smoking and drinks occassionally , denied recreational drugs According to pt. diplopia is better today but still unsteady. Past History Past Medical History: diabetes, hypertension, stroke Past Surgical History: No surgical history Social history: no significant social history Family history: no significant family history Medications and Allergies Allergies Allergy/AdvReac Type Severity Reaction Status Date / Time chloroquine Allergy Hives Verified 09/21/20 17:32 Home Medications Medication Instructions Recorded Confirmed Last Taken Type Aspirin 325 mg PO QDAY #60 tablet 11/04/20 Unknown Rx AtorvaSTATin [Lipitor] 40 mg PO QHS #30 tablet 11/04/20 Unknown Rx Clopidogrel [Plavix] 75 mg PO QDAY #30 tablet 11/04/20 Unknown Rx Valsartan [Diovan] 160 mg PO Q12H #60 tablet 11/04/20 Unknown Rx carvediloL [Coreg] 12.5 mg PO BID #60 tablet 11/04/20 Unknown Rx cloNIDine [Catapres] 0.1 mg PO BID #60 tablet 11/04/20 Unknown Rx hydrALAZINE [Apresoline TAB] 50 mg PO Q8HR #180 tablet 11/04/20 Unknown Rx metFORMIN [Glucophage] 500 mg PO BID #60 tablet 11/04/20 Unknown Rx Review of Systems Constitutional: no fever, no chills Eyes: bilateral: diplopia Ears, nose, mouth and throat: no nasal congestion, no sore throat Cardiovascular: no chest pain, no palpitations Respiratory: no cough, no shortness of breath Gastrointestinal: no abdominal pain, no nausea, no vomiting, no diarrhea Genitourinary Male: no dysuria, no hematuria, no flank pain, no nocturia Musculoskeletal: no neck pain, no low back pain Integumentary: no rash, no pruritis Neurological: no headaches, no confusion Psychiatric: no anxiety, no depression Endocrine: no polyphagia, no polydipsia, no polyuria, no nocturia Past History Past Medical History: diabetes, hypertension, stroke Past Surgical History: No surgical history Social history: no significant social history Family history: no significant family history Medications and Allergies Allergies Allergy/AdvReac Type Severity Reaction Status Date / Time chloroquine Allergy Hives Verified 09/21/20 17:32 Home Medications Medication Instructions Recorded Confirmed Last Taken Type Aspirin 325 mg PO QDAY #60 tablet 11/04/20 Unknown Rx AtorvaSTATin [Lipitor] 40 mg PO QHS #30 tablet 11/04/20 Unknown Rx Clopidogrel [Plavix] 75 mg PO QDAY #30 tablet 11/04/20 Unknown Rx Valsartan [Diovan] 160 mg PO Q12H #60 tablet 11/04/20 Unknown Rx carvediloL [Coreg] 12.5 mg PO BID #60 tablet 11/04/20 Unknown Rx cloNIDine [Catapres] 0.1 mg PO BID #60 tablet 11/04/20 Unknown Rx hydrALAZINE [Apresoline TAB] 50 mg PO Q8HR #180 tablet 11/04/20 Unknown Rx metFORMIN [Glucophage] 500 mg PO BID #60 tablet 11/04/20 Unknown Rx Active Meds: Active Medications Acetaminophen (Acetaminophen 325 Mg Tab) 650 mg PO Q4H PRN PRN Reason: Pain MILD(1-3)/Fever >100.5/MELO Aspirin (Aspirin Ec 81 Mg Tab) 81 mg PO QDAY MARK Atorvastatin Calcium (Atorvastatin 40 Mg Tab) 40 mg PO QHS MARK Bisacodyl (Bisacodyl 10 Mg Rect Supp) 10 mg [place] QDAY PRN PRN Reason: Constipation Clonidine HCl (Clonidine 0.1 Mg Tab) 0.1 mg PO BID@0800,1700 [facility] Clopidogrel Bisulfate (Clopidogrel 75 Mg Tab) 75 mg PO QDAY [facility] Dextrose (Dextrose 50% In Water (25gm) 50 Ml Syringe) 0 ml IV Q30MIN PRN; Protocol PRN Reason: Hypoglycemia Heparin Sodium (Porcine) (Heparin 5,000 Unit/1 Ml Vial) 5,000 unit SUB-Q Q8HR [facility] Last Admin: 02/12/21 06:15 Dose: 5,000 unit Documented by: Hydralazine HCl (Hydralazine 25 Mg Tab) 50 mg PO Q8HR [facility] Last Admin: 02/12/21 06:15 Dose: 50 mg Documented by: Insulin Human Regular (Insulin Regular, Human 100 Units/1 Ml) 0 units SUB-Q ACHS [facility]; Protocol Magnesium Hydroxide (Magnesium Hydroxide (Mom) Oral Liqd Udc) 30 ml PO Q4H PRN PRN Reason: Constipation Metoclopramide HCl (Metoclopramide 10 Mg Tab) 10 mg PO Q6H PRN PRN Reason: Nausea And Vomiting Morphine Sulfate (Morphine 2 Mg/1 Ml Inj) 2 mg IV Q4H PRN PRN Reason: Pain, Moderate (4-6) Morphine Sulfate (Morphine 4 Mg/1 Ml Inj) 4 mg IV Q4H PRN PRN Reason: Pain , Severe (7-10) Ondansetron HCl (Ondansetron 4 Mg/2 Ml Inj) 4 mg IV Q8H PRN PRN Reason: Nausea And Vomiting Promethazine HCl (Promethazine 25 Mg Rect Supp) 25 mg [place] Q6H PRN PRN Reason: Nausea And Vomiting Sodium Chloride (Sodium Chloride 0.9% 10 Ml Flush Syringe) 10 ml IV BID [facility] Sodium Chloride (Sodium Chloride 0.9% 10 Ml Flush Syringe) 10 ml IV PRN PRN PRN Reason: LINE FLUSH Valsartan (Valsartan 160mg Tab) 160 mg PO Q12HR [facility] Last Admin: 02/12/21 06:15 Dose: 160 mg Documented by: Physical Examination - Vital Signs Vital Signs: Vital Signs Temp Pulse Resp BP Pulse Ox 97.8 F 90 18 195/90 100 02/11/21 18:11 02/11/21 18:11 02/11/21 18:11 02/11/21 18:11 02/11/21 18:11 - Constitutional General appearance: comfortable - EENT EENT: Present: PERRL, mucous membranes moist - Respiratory Respiratory: Present: chest non-tender, lungs clear, rhonchi - Cardiovascular Cardiovascular: Present: regular rate, normal S1, normal S2 Extremities: Present: no peripheral edema bilatateraly, no clubbing, cyanosis - Gastrointestinal Gastrointestinal: Present: normoactive bowel sounds - Integumentary Integumentary: Present: normal - Neurologic Cranial nerve examination: PERRL, EOMI, other (slight right eye with limited ingaze but no complaint of diplopia, slight right facial droop ) Speech examination: intact Detailed motor examination: other (slight right pronator drift , no sensory deficit , gait not done , he is able to do finger to nose with no problem ) - Level of Consciousness 1a. Level of Consciousness: alert/keenly responsive - LOC Questions 1b. LOC Questions: answers both correctly - LOC Command 1c. LOC Commands: performs tasks correctly - Best Gaze 2. Best Gaze: partial gaze palsy - Visual 3. Visual: no visual loss - Facial Palsy 4. Facial Palsy: minor paralysis - Motor Arm 5a. Motor Arm Left: no drift 5b. Motor Arm Right: drift - Motor Leg 6a. Motor Leg Left: no drift 6b. Motor Leg Right: no drift - Limb Ataxia 7. Limb Ataxia: absent - Sensory 8. Sensory: normal - Best Language 9. Best Language: no aphasia - Dysarthria 10. Dysarthria: normal - Extinction and Inattention 11. Extinction/Inattention: no abnormality - Scoring Total Score: 3 Stroke Severity: Minor Stroke Results - Laboratory Findings CBC and BMP: 02/12/21 04:50 02/12/21 04:50 Abnormal Lab Findings: Abnormal Labs 02/11/21 02/11/21 02/11/21 18:03 18:38 18:38 WBC Lymph % (Auto) 37.7 H [place] % (Auto) 9.8 H Eos % (Auto) 6.3 H Potassium Glucose POC Glucose 155 H Total Creatine Kinase 173 H LDL Cholesterol Direct 02/11/21 02/12/21 02/12/21 19:57 04:50 04:50 WBC 4.2 L Lymph % (Auto) [place] % (Auto) 10.2 H Eos % (Auto) 7.9 H Potassium 3.5 L Glucose 125 H 199 H POC Glucose Total Creatine Kinase LDL Cholesterol Direct 45 L 02/12/21 06:14 WBC Lymph % (Auto) [place] % (Auto) Eos % (Auto) Potassium Glucose POC Glucose 183 H Total Creatine Kinase LDL Cholesterol Direct Assessment and Plan - Patient Problems #65 ys old male with hx of CVA 4 months ago he is with hx of HTN,HLP, DM presented with a new onset of subacute left mid brain CVA with slight involvment in left MLF -he is complaining of slight diplopia and unsteady gait -NIH#3 -Ct brain is unremarkable -CTA brain and neck is remarkable for high grad stenosis in R.vertebral a. 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 -initial BP#178/75 # Diabetes mellitus -Patient placed on sliding scale insulin. -We will monitor her Accu-Cheks. -A1C # DVT prophylaxis -Patient placed on subcutaneous Lovenox. # Full code status -Patient is full code. PLAN 1- As above 2- PT/ST evaluate 3-Lipitor 40 mg plus ASA 325 mg and Plavix 75 mg daily X 21 ,then ASA 81 mg Plus Plavix 75 mg due to significant intra cranial vascular disease, 4- Control BP and BS ,with BP<150/80 and A1C<7, LDL<70. 5- Neurology follow up 6- Avoid smoking and alcohol 7- Lipitor 40 mg daily will follow as needed
--- NOTE | 2021-02-12 08:48 | Progress Note ---
Subjective Date of service: 02/12/21 Objective - Constitutional Vitals: Vital Signs - 12hr 02/11/21 02/11/21 02/11/21 21:00 21:16 21:46 Pulse Rate 68 68 65 Respiratory 14 15 14 Rate Blood Pressure 171/80 162/81 177/88 O2 Sat by Pulse 98 98 98 Oximetry 02/11/21 02/11/21 02/11/21 22:00 22:46 23:00 Pulse Rate 65 60 57 L Respiratory 13 12 12 Rate Blood Pressure 146/65 175/84 168/82 O2 Sat by Pulse 98 99 97 Oximetry 02/11/21 02/11/21 02/11/21 23:16 23:30 23:46 Pulse Rate 62 64 63 Respiratory 14 13 15 Rate Blood Pressure 170/86 173/90 175/84 O2 Sat by Pulse 99 98 99 Oximetry 02/12/21 02/12/21 02/12/21 00:00 00:30 00:46 Pulse Rate 60 70 59 L Respiratory 13 13 12 Rate Blood Pressure 176/82 170/80 174/88 O2 Sat by Pulse 99 99 99 Oximetry 02/12/21 02/12/21 02/12/21 01:00 01:16 02:00 Pulse Rate 55 L 54 L 69 Respiratory 12 12 15 Rate Blood Pressure 158/81 174/88 162/87 O2 Sat by Pulse 98 98 99 Oximetry 02/12/21 02/12/21 02/12/21 02:16 02:30 02:46 Pulse Rate 75 62 62 Respiratory 12 13 Rate Blood Pressure 158/77 160/75 152/75 O2 Sat by Pulse 97 99 99 Oximetry 02/12/21 02/12/21 02/12/21 03:16 03:30 04:00 Pulse Rate 62 57 L 65 Respiratory 13 12 15 Rate Blood Pressure 152/75 153/77 152/74 O2 Sat by Pulse 98 98 100 Oximetry 02/12/21 02/12/21 02/12/21 04:16 04:30 04:46 Pulse Rate 70 67 62 Respiratory 15 15 12 Rate Blood Pressure 162/84 164/85 170/82 O2 Sat by Pulse 100 100 100 Oximetry 02/12/21 02/12/21 02/12/21 05:00 05:16 05:30 Pulse Rate 67 73 64 Respiratory 13 12 13 Rate Blood Pressure 178/90 157/82 177/77 O2 Sat by Pulse 98 97 100 Oximetry 02/12/21 02/12/21 02/12/21 05:46 06:00 06:15 Pulse Rate 61 60 69 Respiratory 12 12 Rate Blood Pressure 169/73 178/75 162/77 O2 Sat by Pulse Oximetry 02/12/21 02/12/21 06:16 06:30 Pulse Rate 75 57 L Respiratory 11 L 14 Rate Blood Pressure 162/77 151/63 O2 Sat by Pulse 100 Oximetry General appearance: Present: no acute distress, well-nourished - EENT Eyes: PERRL, EOM intact ENT: hearing intact, clear oral mucosa Ears: bilateral: normal - Neck Neck: supple, normal ROM - Respiratory Respiratory effort: normal Respiratory: bilateral: CTA - Breasts Breasts: normal - Cardiovascular Rhythm: regular Heart Sounds: Present: S1 & S2. Absent: gallop, rub Extremities: pulses intact, No edema, normal color, Full ROM - Gastrointestinal General gastrointestinal: Present: soft, non-tender, non-distended, normal bowel sounds - Genitourinary Male genitourinary: normal - Integumentary Integumentary: clear, warm, dry - Musculoskeletal Musculoskeletal: 1, strength equal bilaterally - Neurologic Neurologic: moves all extremities - Psychiatric Psychiatric: memory intact, appropriate mood/affect, intact judgment & insight - Labs CBC & Chem 7: 02/12/21 04:50 02/12/21 04:50 Labs: Abnormal lab results 02/11/21 02/11/21 02/11/21 Range/Units 18:03 18:38 18:38 WBC (4.5-11.0) K/mm3 Lymph % (Auto) 37.7 H (13.4-35.0) % [place] % (Auto) 9.8 H (0.0-7.3) % Eos % (Auto) 6.3 H (0.0-4.3) % Potassium (3.6-5.0) mmol/L Glucose (75-100) mg/dL POC Glucose 155 H (70-105) mg/dL Total Creatine Kinase 173 H (55-170) units/L LDL Cholesterol Direct (50-130) mg/dL 02/11/21 02/12/21 02/12/21 Range/Units 19:57 04:50 04:50 WBC 4.2 L (4.5-11.0) K/mm3 Lymph % (Auto) (13.4-35.0) % [place] % (Auto) 10.2 H (0.0-7.3) % Eos % (Auto) 7.9 H (0.0-4.3) % Potassium 3.5 L (3.6-5.0) mmol/L Glucose 125 H 199 H (75-100) mg/dL POC Glucose (70-105) mg/dL Total Creatine Kinase (55-170) units/L LDL Cholesterol Direct 45 L (50-130) mg/dL 02/12/21 Range/Units 06:14 WBC (4.5-11.0) K/mm3 Lymph % (Auto) (13.4-35.0) % [place] % (Auto) (0.0-7.3) % Eos % (Auto) (0.0-4.3) % Potassium (3.6-5.0) mmol/L Glucose (75-100) mg/dL POC Glucose 183 H (70-105) mg/dL Total Creatine Kinase (55-170) units/L LDL Cholesterol Direct (50-130) mg/dL HEART Score - HEART Score Troponin: Troponin T < 0.010 ng/mL (0.00-0.029) 02/11/21 18:38
[2021-02-12] MEDS ORDERED: ASPIRIN 325 MG TAB PO SCH (10:00)
--- NOTE | 2021-02-12 10:25 | Magnetic Resonance Report ---
NONENHANCED MR SCAN OF THE BRAIN: INDICATION / CLINICAL INFORMATION: stroke. TECHNIQUE: Multiplanar, multisequence MR images of the brain obtained. COMPARISON: MR scan of the brain from 09/22/2020 FINDINGS: BRAIN / INTRACRANIAL CONTENTS: In the diffusion-weighted images, left paramedian subacute infarction in the midbrain extending towards medial longitudinal fasciculus and 4th cranial nerve nucleus; infa rction is less than 5 days old (low ADC) more than 12 hours old (increased T2 signal intensity; old i schemic changes in the left side of felipe anteriorly As seen in the last MRI scan, old hemorrhagic changes seen in the right posterior putamen and insula; multiple small areas of susceptibility changes in both cerebral hemispheres predominantly in the bas al ganglia and felipe due to chronic microbleed. Chronic ischemic changes in the felipe bilaterally: Medulla normal; cerebellar hemispheres normal In the cerebral hemispheres, confluent periventricular (moderate) white matter hyperintensity; vee us deep hemispheric white matter lesions ([place] 2) due to chronic small vessel disease; these remai n unchanged CRANIOCERVICAL JUNCTION: No significant abnormality. VASCULAR FLOW-VOIDS: No significant abnormality. ORBITS: No significant abnormality of visualized orbits. SINUSES / MASTOIDS: No significant abnormality of visualized sinuses and mastoid air cells. ADDITIONAL FINDINGS: None. IMPRESSION: 1. Subacute focal infarction in the left paramedian midbrain extending inferiorly towards the medial longitudinal fasciculus Signer Name: Lonnie Mcgraw MD Signed: 02/12/2021 10:20 AM Workstation Name: [id number]
--- NOTE | 2021-02-12 11:09 | Cat Scan Report ---
NONENHANCED CT SCAN OF THE HEAD: INDICATION / CLINICAL INFORMATION: 65 years Male; unsteady gait. TECHNIQUE: Routine CT head without contrast. All CT scans at this location are performed using CT dos e reduction for ALARA by means of automated exposure control. COMPARISON: CT scan of the head from 02/11/2021; MRI scan of the brain obtained today FINDINGS: BRAIN / INTRACRANIAL CONTENTS: No acute hemorrhage, mass effect, midline shift, hydrocephalus, or acu te, large territorial infarct. Compared to the yesterday's CT scan, low-attenuation area in the left paramedian midbrain; consistent with subacute infarction seen in the MRI scan; Chronic ischemic mullen ges in the left side of felipe; focal area of encephalomalacia in the right posterior putamen and insul a; periventricular low-attenuation areas due to chronic small vessel disease; unchanged CRANIOCERVICAL JUNCTION: No significant abnormality. ORBITS: No significant abnormality of visualized orbits. SINUSES / MASTOIDS: No significant abnormality of the visualized paranasal sinuses or mastoid air felix ls. ADDITIONAL FINDINGS: None. IMPRESSION: Focal low-attenuation area in the left paramedian midbrain; correlates with the MR finding of subacut e left paramedian midbrain infarction No hemorrhage Signer Name: Lonnie Mcgraw MD Signed: 02/12/2021 11:05 AM Workstation Name: [id number]
--- NOTE | 2021-02-12 11:18 | Cat Scan Report ---
CTA NECK WITH CONTRAST HISTORY: Unsteady gait COMPARISON: None. TECHNIQUE: Routine CTA of the neck was performed. 3-D/MIP reformats were postprocessed. Percentage s tenosis is determined by direct quantitative measurements of diseased internal carotid artery diamete r compared with normal distal internal carotid artery reference segments or by criteria similar to NA SCET where applicable.All CT scans at this location are performed using CT dose reduction for ALARA b y means of automated exposure control CONTRAST: 100 ml of Omnipaque 350 FINDINGS: Aortic arch: Right-sided aortic arch; [place]mer[place] diverticulum at the left subclavian origin; separate origins of right subclavian and right common carotid artery Cervical vertebral arteries: Both vertebral arteries are normal from their origins up to basilar form ation Common carotid arteries: No significant abnormality. Carotid bifurcations: Normal Cervical internal carotid arteries: No significant abnormality. Additional findings: None. IMPRESSION: 1. No significant abnormality. Signer Name: Lonnie Mcgraw MD Signed: 02/12/2021 11:14 AM Workstation Name: [id number]
--- NOTE | 2021-02-12 11:25 | Cat Scan Report ---
CTA HEAD WITH CONTRAST HISTORY: Stroke COMPARISON: CTA of the head from 09/22/2020 TECHNIQUE: Routine non-contrast CT Head, CTA of the head and post-contrast CT Head are performed. 3-D /MIP reformats postprocessed. All CT scans at this location are performed using CT dose reduction for ALARA by means of automated exposure control CONTRAST: 100 ml of Omnipaque 350 FINDINGS: CTA Head: Intracranial vertebral arteries: High-grade stenoses in the intradural segment of right vertebral art radha; smaller left vertebral artery ends in the left PICA; unchanged Basilar artery: Atherosclerotic changes with the significant stenoses (more than 70% in the distal ba silar artery near terminus; unchanged Posterior cerebral arteries: Patent from the basilar tip up to P4 segment bilaterally; luminal change s more on the right posterior cerebral artery Intracranial internal carotid arteries: No stenoses; vascular calcification Anterior cerebral arteries: No significant abnormality. Middle cerebral arteries: Minimal luminal changes in the right M1 segment; approximately 50% stenoses in the left M1 segment Dural venous sinuses:Not optimally opacified. No significant abnormality. Additional findings: None. IMPRESSION: 1. CT findings unchanged since August 21 High-grade stenoses in the distal right vertebral artery; high-grade stenoses in the distal basilar a rtery 50% stenoses in the distal left M1 segment Signer Name: Lonnie Mcgraw MD Signed: 02/12/2021 11:21 AM Workstation Name: [id number]
[2021-02-12] MEDS: cloNIDine 0.1 MG TAB PO SCH ×2 (12:40→18:03)
[2021-02-12] MEDS: ASPIRIN EC 81 MG TAB PO SCH (12:40)
[2021-02-12] MEDS: CLOPIDOGREL 75 MG TAB PO SCH (12:40)
[2021-02-12] MEDS: INSULIN REGULAR, HUMAN 100 UNITS/1 ML SUB-Q SCH ×4 (12:42→22:37)
[2021-02-13] MEDS: hydrALAZINE 25 MG TAB PO SCH ×2 (05:10→13:09)
[2021-02-13] MEDS: HEPARIN 5,000 UNIT/1 ML VIAL SUB-Q SCH ×2 (05:10→13:10)
[2021-02-13] MEDS: VALSARTAN 160MG TAB PO SCH (09:37)
[2021-02-13] MEDS: ASPIRIN EC 81 MG TAB PO SCH (09:38)
[2021-02-13] MEDS: cloNIDine 0.1 MG TAB PO SCH ×2 (09:38→17:21)
[2021-02-13] MEDS: INSULIN REGULAR, HUMAN 100 UNITS/1 ML SUB-Q SCH ×3 (09:38→17:24)
[2021-02-13] MEDS: CLOPIDOGREL 75 MG TAB PO SCH (09:38)
--- NOTE | 2021-02-13 10:52 | Progress Note ---
Assessment and Plan - Patient Problems #65 ys old male with hx of CVA 4 months ago he is with hx of HTN,HLP, DM presented with a new onset of subacute left mid brain CVA with slight involvment in left MLF -he is complaining of slight diplopia and unsteady gait -NIH#3 -Ct brain is unremarkable -CTA brain and neck is remarkable for high grad stenosis in R.vertebral a. 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 -initial BP#178/75 # Diabetes mellitus -Patient placed on sliding scale insulin. -We will monitor her Accu-Cheks. -A1C # DVT prophylaxis -Patient placed on subcutaneous Lovenox. # Full code status -Patient is full code. PLAN 1- As above-- review echo cardiogram, check A1C 2- PT/ST evaluate 3-Lipitor 40 mg plus ASA 325 mg and Plavix 75 mg daily X 21 ,then ASA 81 mg Plus Plavix 75 mg due to significant intra cranial vascular disease, 4- Control BP and BS ,with BP<150/80 and A1C<7, LDL<70. 5- Neurology follow up 6- Avoid smoking and alcohol 7- Lipitor 40 mg daily 8- No driving due to diplopia until evaluated by neurology in follow up after 2- 3 Months will follow as needed Subjective Date of service: 02/13/21 Principal diagnosis: diplopia and unsteady gait Interval history: pt. still with diplopia more when looking to right side he denied driving he is able to eat ,gait is slightly unsteady Objective - Vital Sign Vital Signs - 12hr 02/13/21 02/13/21 02/13/21 00:00 00:29 02:00 Temperature 97.6 F Pulse Rate 72 59 L Respiratory 18 18 Rate Blood Pressure 150/67 O2 Sat by Pulse 99 97 Oximetry 02/13/21 02/13/21 02/13/21 04:40 07:54 09:25 Temperature 98.1 F 98.1 F Pulse Rate 63 79 Respiratory 18 20 Rate Blood Pressure 176/77 177/81 O2 Sat by Pulse 98 98 96 Oximetry 02/13/21 02/13/21 09:37 09:38 Temperature Pulse Rate 79 79 Respiratory Rate Blood Pressure 177/81 177/81 O2 Sat by Pulse Oximetry - General Apperance Constitutional: comfortable - EENT EENT: PERRL, mucous membranes moist - Respiratory Respiratory: chest non-tender, lungs clear - Cardiovascular Cardiovascular: regular rate, normal S1, normal S2 Extremities: no peripheral edema bilat, no clubbing, cyanosis - Gastrointestinal Gastrointestinal: normoactive bowel sounds - Integumentary Integumentary: normal - Neurologic Cranial nerve examination: anosmic, PERRL, EOMI, other (slight left eye lid droo ping and right eye limited medial gaze and nystagmus to lateral gaze) Detailed motor examination: grossly full strength in, other (with slight right pronator drift , gait not done ) - Laboratory Findings CBC and BMP: 02/12/21 04:50 02/12/21 04:50 Abnormal Lab Findings: Abnormal Labs 02/11/21 02/11/21 02/11/21 18:03 18:38 18:38 WBC Lymph % (Auto) 37.7 H [place] % (Auto) 9.8 H Eos % (Auto) 6.3 H Potassium Glucose POC Glucose 155 H Total Creatine Kinase 173 H LDL Cholesterol Direct 02/11/21 02/12/21 02/12/21 19:57 04:50 04:50 WBC 4.2 L Lymph % (Auto) [place] % (Auto) 10.2 H Eos % (Auto) 7.9 H Potassium 3.5 L Glucose 125 H 199 H POC Glucose Total Creatine Kinase LDL Cholesterol Direct 45 L 02/12/21 02/12/21 02/12/21 06:14 12:41 21:09 WBC Lymph % (Auto) [place] % (Auto) Eos % (Auto) Potassium Glucose POC Glucose 183 H 122 H 116 H Total Creatine Kinase LDL Cholesterol Direct 02/13/21 08:22 WBC Lymph % (Auto) [place] % (Auto) Eos % (Auto) Potassium Glucose POC Glucose 181 H Total Creatine Kinase LDL Cholesterol Direct
--- NOTE | 2021-02-13 15:06 | Progress Note ---
Subjective Date of service: 02/13/21 Principal diagnosis: diplopia and unsteady gait Objective - Constitutional Vitals: Vital Signs - 12hr 02/13/21 02/13/21 02/13/21 04:40 07:54 09:25 Temperature 98.1 F 98.1 F Pulse Rate 63 79 Respiratory 18 20 Rate Blood Pressure 176/77 177/81 O2 Sat by Pulse 98 98 96 Oximetry 02/13/21 02/13/21 02/13/21 09:37 09:38 11:34 Temperature 98.3 F Pulse Rate 79 79 73 Respiratory 20 Rate Blood Pressure 177/81 177/81 160/75 O2 Sat by Pulse 79 L Oximetry 02/13/21 02/13/21 11:55 13:09 Temperature Pulse Rate 66 66 Respiratory Rate Blood Pressure 160/75 O2 Sat by Pulse Oximetry General appearance: Present: no acute distress, well-nourished - EENT Eyes: PERRL, EOM intact ENT: hearing intact, clear oral mucosa Ears: bilateral: normal - Neck Neck: supple, normal ROM - Respiratory Respiratory effort: normal Respiratory: bilateral: CTA - Breasts Breasts: normal - Cardiovascular Rhythm: regular Heart Sounds: Present: S1 & S2. Absent: gallop, rub Extremities: pulses intact, No edema, normal color, Full ROM - Gastrointestinal General gastrointestinal: Present: soft, non-tender, non-distended, normal bowel sounds - Genitourinary Male genitourinary: normal - Integumentary Integumentary: clear, warm, dry - Musculoskeletal Musculoskeletal: 1, strength equal bilaterally - Neurologic Neurologic: moves all extremities - Psychiatric Psychiatric: memory intact, appropriate mood/affect, intact judgment & insight - Labs CBC & Chem 7: 02/12/21 04:50 02/12/21 04:50 Labs: Abnormal lab results 02/12/21 02/13/21 02/13/21 Range/Units 21:09 08:22 12:13 POC Glucose 116 H 181 H 177 H (70-105) mg/dL HEART Score - HEART Score Troponin: Troponin T < 0.010 ng/mL (0.00-0.029) 02/11/21 18:38
--- NOTE | 2021-02-13 15:40 | Discharge Summary ---
Providers - Providers Date of Admission: 02/11/21 21:54 Date of discharge: 02/13/21 Attending physician: NAV CALHOUN 02/11/21 22:28 Consult to Dietitian/Nutrition [CONS] Routine Physician Instructions: Reason For Exam: Reason for Consult: Nutrition Recommendations Reason for Consult: Diet education Consult to Physician [CONS] Routine Comment: Consulting Provider: SANDIP PARRISH Physician Instructions: Reason For Exam: Double Vision Occupational Therapy Evaluate and Treat [CONS] Routine Comment: Reason For Exam: Neuro deficits Physical Therapy Evaluation and Treat [CONS] Routine Comment: Reason For Exam: Neuro deficits 02/11/21 22:37 Speech Therapy Evaluation and Treat [CONS] Routine Reason For Exam: swallow eval [facility] Hospital course: 1) TMA of left great toe 2) TMA of right 5th toe Disposition: 01 HOME / SELF CARE / HOMELESS Exam - Constitutional Vitals: Temp Pulse Resp BP Pulse Ox 98.3 F 66 18 160/75 97 02/13/21 11:34 02/13/21 14:00 02/13/21 14:00 02/13/21 13:09 02/13/21 14:00 Plan Follow up with: BOB TRACYTRENTON MD STEVEN [Primary Care Provider] - 7 Days CLAY DOBSON MD [Staff Physician] - 7 Days Prescriptions: Glimepiride [Amaryl] 2 mg PO QAM #30 tablet Aspirin 325 mg PO QDAY #100 tablet cloNIDine [Catapres] 0.1 mg PO BID #60 tablet carvediloL [Coreg] 12.5 mg PO BID #60 tablet Valsartan [Diovan] 160 mg PO Q12HR #60 tablet metFORMIN [Glucophage] 500 mg PO BID #60 tablet AtorvaSTATin [Lipitor] 40 mg PO QHS 30 Days #30 tablet Clopidogrel [Plavix] 75 mg PO QDAY #30 tablet Other Discharge Orders: Glucometer (Amb) Location: None Selected Glucometer supplies[Amb] Location: None Selected
[2021-02-13] MEDS ORDERED: hydrALAZINE 20 MG/1 ML INJ IV ONE (18:09)
[2021-02-13 18:17] VITALS: BP 215/94
--- NOTE | 2021-02-16 13:20 | Electrocardiograph Report ---
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
== END 2021-02-13 19:48 | disposition home or self-care (01) | DRG 66 ==
LOC: ED 17:42 → 4A 21:54
PROVIDERS: ADMIT Internal Medicine Geriatric Medicine; ATTEND Internal Medicine
DX: I63.9 Cerebral infarction, unspecified (principal); I10 Essential (primary) hypertension; E11.9 Type 2 diabetes mellitus without complications; H53.2 Diplopia; R26.81 Unsteadiness on feet; R29.703 NIHSS score 3; H51.22 Internuclear ophthalmoplegia, left eye; Z79.82 Long term (current) use of aspirin; Z79.899 Other long term (current) drug therapy
CPT/HCPCS: 36415; 70450; 70496; 70498; 70551; 80048; 80061; 82550; 82553; 82962; 84484; 85025; 85610; 85670; 85730; 93005; 93306; G0378; A9270-GY; J0360; J1644; J1815; Q9967